=== PATIENT | female | born 1935 | race Two or more races ===

== ENCOUNTER → 2023-01-19 | Outpatient (CLI) | payer MEDICARE, BC | END | disposition home or self-care (01) | LOC: XYW 14:52 | PROVIDERS: ATTEND Internal Medicine | DX: I08.0 Rheumatic disorders of both mitral and aortic valves (principal); I10 Essential (primary) hypertension; R42 Dizziness and giddiness | CPT/HCPCS: 93306 ==

== ENCOUNTER 2023-01-28 13:29 | Inpatient (IN) | payer MEDICARE, BC ==
[~2023-01-28] VITALS: Ht 149.9 cm; Wt 53.9 kg
[2023-01-28 14:29] LABS: Basophils # (auto) 0.1 10 ^3/uL (0-0.2); Basophils % (auto) 0.9 % (0.0-2.0); Eosinophils # (auto) 0.1 10 ^3/uL (0-0.8); Eosinophils % (auto) 1.2 % (0.0-7.0); Hematocrit 34.1 % (36.0-46.0); Hemoglobin 11.6 g/dL (12.2-16.2); Lymphocytes % (auto) 27.7 % (10.0-50.0); Mean Corpuscular Hemoglobin 32.2 pg (28.0-32.0); Mean Corpuscular Hgb Conc. 34.1 g/dL (32.0-36.0); Mean Corpuscular Volume 94.3 fL (80.0-100.0); Monocytes # (auto) 0.4 10 ^3/uL (0-1.3); Monocytes % (auto) 5.4 % (0.0-12.0); Neutrophils # (auto) 4.8 10 ^3/uL (1.6-8.6); Neutrophils % (auto) 64.8 % (37.0-80.0); Red Blood Cells 3.62 10^6/uL (4.0-5.20); Red Cell Distribution Width 13.1 % (11.8-14.3); White Blood Cell 7.4 10^3/uL (4.4-10.8)
[2023-01-28 14:45] LABS: Albumin 3.8 g/dL (3.4-5.0); Calcium 9.5 mg/dL (8.5-10.1); Magnesium 2.3 mg/dL (1.6-2.6); Potassium 4.4 mmol/L (3.5-5.1)
[2023-01-28] MEDS ORDERED: ASPirin 81 mg TAB PO ONE (14:45)
[2023-01-28 14:46] LABS: INR 0.97 (0.9-1.15); Partial Thromboplastin Time 25.1 sec (24.6-33.4)
[2023-01-28 14:50] LABS: Bilirubin, Total 0.4 mg/dL (0.2-1.0); Total Protein 7.3 g/dL (6.4-8.2)
[2023-01-28] MEDS ORDERED: OXYB5TAB61 PO (17:15)
[2023-01-28] MEDS ORDERED: MORPHINE SULFATE INJ 2 MG/ml SYRG IV PRN (17:15)
[2023-01-28] MEDS ORDERED: LEV88T PO (17:15)
[2023-01-28] MEDS ORDERED: PANT40T PO (17:15)
[2023-01-28] MEDS ORDERED: NITROGLYCERIN 0.4 MG SL TAB SL PRN (17:15)
[2023-01-28] MEDS ORDERED: GABA400C11 PO (17:15)
[2023-01-28] MEDS ORDERED: SERT50TA19 PO (17:15)
[2023-01-28] MEDS ORDERED: ENOXAPARIN SOD 60 MG/0.6 ML SYRINGE SC ONE (17:30)
[2023-01-28 17:38] LABS: Cholesterol 232 mg/dL (< 200); Triglycerides 241 mg/dL (< 150)
[2023-01-28 17:40] LABS: HDL Cholesterol 81 mg/dL (40-59); LDL Cholesterol 127 mg/dL (< 100)
[2023-01-28] MEDS: SODIUM CHLORIDE 0.9% 1,000 ML IV SCH (18:54)
[2023-01-28 19:08] LABS: Urine Bacteria NONE SEEN /hpf (None Seen); Urine Blood Negative /uL (Negative); Urine Hyaline Cast FEW /lpf (0 - 2); Urine Specific Gravity 1.012 (1.001-1.035); Urine WBC 6 /hpf (0 - 5)
[2023-01-28] MEDS: ENOXAPARIN SOD 60 MG/0.6 ML SYRINGE SC SCH (23:04)
[2023-01-28] MEDS: ACETAMINOPHEN 325 MG TAB PO PRN (23:06)
[2023-01-28 23:20] VITALS: BP 138/75
[2023-01-28 23:36] VITALS: BP 138/75
[2023-01-29 05:00] VITALS: BP 135/61
[2023-01-29 05:55] LABS: Basophils # (auto) 0 10 ^3/uL (0-0.2); Basophils % (auto) 0.5 % (0.0-2.0); Eosinophils # (auto) 0.2 10 ^3/uL (0-0.8); Eosinophils % (auto) 3.3 % (0.0-7.0); Hematocrit 30.1 % (36.0-46.0); Hemoglobin 10.4 g/dL (12.2-16.2); Lymphocytes # (auto) 2.1 10 ^3/uL (0.4-5.4); Lymphocytes % (auto) 40.4 % (10.0-50.0); Mean Corpuscular Hemoglobin 32.3 pg (28.0-32.0); Mean Corpuscular Hgb Conc. 34.7 g/dL (32.0-36.0); Mean Corpuscular Volume 93.1 fL (80.0-100.0); Monocytes # (auto) 0.4 10 ^3/uL (0-1.3); Monocytes % (auto) 8.5 % (0.0-12.0); Neutrophils # (auto) 2.4 10 ^3/uL (1.6-8.6); Neutrophils % (auto) 47.3 % (37.0-80.0); Red Blood Cells 3.23 10^6/uL (4.0-5.20); Red Cell Distribution Width 13.2 % (11.8-14.3); White Blood Cell 5.2 10^3/uL (4.4-10.8)
[2023-01-29 06:11] LABS: Calcium 8.7 mg/dL (8.5-10.1)
[2023-01-29 06:17] LABS: BUN/Creatinine Ratio 19.5 (10.0-20.0); Bilirubin, Total 0.5 mg/dL (0.2-1.0); Total Protein 6.3 g/dL (6.4-8.2)
[2023-01-29] MEDS: SODIUM CHLORIDE 0.9% 1,000 ML IV SCH (08:55)
[2023-01-29] MEDS: PANTOPRAZOLE 40 MG TAB PO SCH (08:56)
[2023-01-29] MEDS: GABAPENTIN 400 MG CAP PO SCH (08:59)
[2023-01-29] MEDS: ENOXAPARIN SOD 60 MG/0.6 ML SYRINGE SC SCH (08:59)
[2023-01-29] MEDS: ASPirin 81 mg TAB PO SCH (08:59)
[2023-01-29 09:00] VITALS: BP 146/77
[2023-01-29] MEDS: SERTRALINE HCL 50 MG TAB PO SCH (09:00)
[2023-01-29] MEDS: LEVOTHYROXINE SODIUM 88 MCG TAB PO SCH (09:00)
[2023-01-29] MEDS: OXYBUTYNIN CHL 5 MG TAB PO SCH (09:01)
[2023-01-29] MEDS ORDERED: CAR3125T PO (09:14)
[2023-01-29] MEDS ORDERED: LOSA-39 PO (09:14)
[2023-01-29] MEDS ORDERED: KETOROLAC TROMETH 30 MG/ML 1ML VIAL IV ONE (11:30)
[2023-01-29 13:00] VITALS: BP 123/54
[2023-01-29 16:58] VITALS: BP 143/69
[2023-01-29 20:00] VITALS: BP 140/64
[2023-01-29 22:00] VITALS: BP 140/64
[2023-01-30] MEDS: ACETAMINOPHEN 325 MG TAB PO PRN ×3 (04:51→20:51)
[2023-01-30 05:34] VITALS: BP 134/60
[2023-01-30] MEDS: LEVOTHYROXINE SODIUM 88 MCG TAB PO SCH (07:29)
[2023-01-30] MEDS: PANTOPRAZOLE 40 MG TAB PO SCH (07:29)
[2023-01-30] MEDS: OXYBUTYNIN CHL 5 MG TAB PO SCH (07:30)
[2023-01-30] MEDS: SERTRALINE HCL 50 MG TAB PO SCH (07:30)
[2023-01-30] MEDS: ASPirin 81 mg TAB PO SCH (07:30)
[2023-01-30] MEDS: GABAPENTIN 400 MG CAP PO SCH (07:30)
[2023-01-30 08:30] VITALS: BP 132/67
[2023-01-30 08:50] VITALS: BP 132/67
[2023-01-30] MEDS ORDERED: LIDOCAINE 5% TOPICAL PATCH TOP ONE (12:30)
[2023-01-30] MEDS ORDERED: FUROSEMIDE 20 MG/2 ML VIAL IV ONE (13:00)
[2023-01-30 13:22] VITALS: BP 132/70
[2023-01-30] MEDS ORDERED: diphenhdrAMINE HCL 50 MG/1 ML VL IV ONE (13:45)
[2023-01-30] MEDS ORDERED: FAMOTIDINE INJECTION 40 MG in SODIUM CHL 0.9% 100 ML IV ONE (13:45)
[2023-01-30] MEDS ORDERED: methylPREDNISolone SOD SUCC 125 MG/2 ML VL IV ONE (13:45)
[2023-01-30] MEDS ORDERED: IODIXANOL 320MG/ML 100ML BTL IV ONE (14:23)
[2023-01-30] MEDS ORDERED: LIDOCAINE 2%HCL (LOCAL ANESTH.) INJ 10ml MDV ONE (14:23)
[2023-01-30 14:44] LABS: Partial Thromboplastin Time 30.1 sec (24.6-33.4)
[2023-01-30 15:46] LABS: Urine WBC None Seen /hpf (0 - 5)
[2023-01-30 16:02] LABS: Urine Bacteria NONE SEEN /hpf (None Seen); Urine Blood Negative /uL (Negative); Urine Specific Gravity 1.005 (1.001-1.035)
[2023-01-30 17:15] VITALS: BP 147/78
[2023-01-30] MEDS ORDERED: VERAPAMIL 2.5MG/ML INJ 2ML VIAL IV ONE (17:47)
[2023-01-30] MEDS ORDERED: MIDAZOLAM HCL 2MG/2ML 2ml VIAL (1mg/ml) ONE (17:48)
[2023-01-30] MEDS ORDERED: fentaNYL CITRATE 100 MCG/2 ML VL ONE (17:48)
[2023-01-30] MEDS ORDERED: MORPHINE SULFATE INJ 2 MG/ml SYRG ONE (18:24)
[2023-01-30] MEDS ORDERED: HEPARIN SODIUM (PORCINE) 5000 UNITS/ML 1ML VIAL ONE (18:38)
[2023-01-30] MEDS: ATORVASTATIN 20 MG TAB PO SCH ×2 (20:51→21:09)
[2023-01-30 22:00] VITALS: BP 130/68
[2023-01-31 05:00] VITALS: BP 97/53
[2023-01-31 06:38] LABS: Calcium 8.6 mg/dL (8.5-10.1); Magnesium 1.9 mg/dL (1.6-2.6); Potassium 3.8 mmol/L (3.5-5.1)
[2023-01-31 09:00] VITALS: BP 107/62
[2023-01-31] MEDS ORDERED: LIDOCAINE 5% TOPICAL PATCH TOP SCH (10:00)
[2023-01-31] MEDS: OXYBUTYNIN CHL 5 MG TAB PO SCH (10:00)
[2023-01-31] MEDS: GABAPENTIN 400 MG CAP PO SCH (10:00)
[2023-01-31] MEDS ORDERED: FUROSEMIDE 20 MG/2 ML VIAL IV SCH (10:00)
[2023-01-31] MEDS: ASPirin 81 mg TAB PO SCH (10:00)
[2023-01-31] MEDS: LEVOTHYROXINE SODIUM 88 MCG TAB PO SCH (10:01)
[2023-01-31] MEDS: SERTRALINE HCL 50 MG TAB PO SCH (10:01)
[2023-01-31] MEDS: PANTOPRAZOLE 40 MG TAB PO SCH (10:01)
[2023-01-31] MEDS ORDERED: ONDANSETRON HCL 4 MG/2 ML VIAL IV PRN (11:45)
[2023-01-31 13:00] VITALS: BP 98/55
[2023-01-31] MEDS ORDERED: ATOR20TA50 PO (14:22)
[2023-01-31 15:20] VITALS: BP 107/62
== END 2023-01-31 17:15 | disposition home or self-care (01) | DRG 286 ==
LOC: ER 13:29 → TELE 17:14 → TELE-CENTR 21:52
PROVIDERS: ADMIT Nurse Practitioner Family; ATTEND Internal Medicine
PROC: 4A023N7 Measurement of Cardiac Sampling and Pressure, Left Heart, Percutaneous Approach (ICD-10-PCS; principal; 2023-01-31)
PROC: B2111ZZ Fluoroscopy of Multiple Coronary Arteries using Low Osmolar Contrast (ICD-10-PCS; 2023-01-31)
PROC: B2151ZZ Fluoroscopy of Left Heart using Low Osmolar Contrast (ICD-10-PCS; 2023-01-31)
DX: I11.0 Hypertensive heart disease with heart failure (principal); I50.23 Acute on chronic systolic (congestive) heart failure; I24.9 Acute ischemic heart disease, unspecified; E87.1 Hypo-osmolality and hyponatremia; I42.8 Other cardiomyopathies; R54 Age-related physical debility; E03.9 Hypothyroidism, unspecified; Z20.822 Contact with and (suspected) exposure to COVID-19; M13.88 Other specified arthritis, other site; M81.0 Age-related osteoporosis without current pathological fracture; Z91.041 Radiographic dye allergy status; Z82.49 Family history of ischemic heart disease and other diseases of the circulatory system; Z88.5 Allergy status to narcotic agent; Z79.899 Other long term (current) drug therapy
CPT/HCPCS: 36415; 71045; 78582; 80048; 80053; 80061; 81001; 83036; 83605; 83735; 83880; 84443; 84484; 85025; 85379; 85610; 85730; 87040; 87426; 93005; 93458; 96360; 96372; 99152; C1894; G0378; J1885; J2001; J2250; J2405; J3490; Q9967

== ENCOUNTER → 2024-01-11 | Outpatient (CLI) | payer MEDICARE, BC ==
[~2024-01-11] MED LIST: ATOR20TA50 PO; CAR3125T PO; GABA-1251 PO; LEVO-177 PO; LOSA100T58 PO; OXYB5TAB10 PO; PANT40T PO; SERT-206 PO
== END | disposition home or self-care (01) ==
LOC: XYW 10:56
PROVIDERS: ATTEND Internal Medicine
DX: I51.7 Cardiomegaly (principal); R07.9 Chest pain, unspecified
CPT/HCPCS: 93306

== ENCOUNTER → 2024-02-10 | Outpatient (CLI) | payer MEDICARE, BC ==
[~2024-02-10] MED LIST changes: +LOSA-535 PO; -LOSA100T58 PO; -OXYB5TAB10 PO; +OXYB5TAB14 PO
[2024-02-10 14:59] LABS: Urine Bacteria None Seen /hpf (None Seen)
[2024-02-10 15:14] LABS: Urine Blood Negative /uL (Negative); Urine Clarity Clear (Clear); Urine Color Yellow (Yellow); Urine Protein, UAD Negative (Negative); Urine Specific Gravity 1.014 (1.001-1.035); Urine Urobilinogen Normal (Negative); Urine WBC 6 /hpf (0 - 5); Urine pH 5.5 (5.0-9.0)
== END | disposition home or self-care (01) ==
LOC: LAB 14:56
PROVIDERS: ATTEND Urology
DX: R35.1 Nocturia (principal); R39.81 Functional urinary incontinence
CPT/HCPCS: 81001; 87086

== ENCOUNTER 2024-06-09 07:02 | Inpatient (IN) | payer MEDICARE, BC ==
[~2024-06-09] VITALS: Ht 149.9 cm; Wt 54.0 kg
[2024-06-09 07:45] VITALS: PULSE 73; RESP 15; O2SAT 97
[2024-06-09] MEDS: ASPirin 325 MG TAB PO ONE (08:20)
[2024-06-09] MEDS: cloNIDine HCL 0.1 MG TAB PO ONE (08:20)
[2024-06-09 08:23] LABS: Basophils # (auto) 0 10 ^3/uL (0-0.2); Basophils % (auto) 0.6 % (0.0-2.0); Eosinophils # (auto) 0.1 10 ^3/uL (0-0.8); Eosinophils % (auto) 1.7 % (0.0-7.0); Hematocrit 32.2 % (36.0-46.0); Hemoglobin 10.7 g/dL (12.2-16.2); Lymphocytes # (auto) 1.8 10 ^3/uL (0.4-5.4); Lymphocytes % (auto) 36.9 % (10.0-50.0); Mean Corpuscular Hemoglobin 31.9 pg (28.0-32.0); Mean Corpuscular Hgb Conc. 33.3 g/dL (32.0-36.0); Mean Corpuscular Volume 95.7 fL (80.0-100.0); Monocytes # (auto) 0.4 10 ^3/uL (0-1.3); Monocytes % (auto) 8.6 % (0.0-12.0); Neutrophils # (auto) 2.6 10 ^3/uL (1.6-8.6); Neutrophils % (auto) 52.2 % (37.0-80.0); Nucleated Red Blood Cells % 0.1 %; Red Blood Cells 3.36 10^6/uL (4.0-5.20); Red Cell Distribution Width 14.3 % (11.8-14.3)
[2024-06-09 08:29] LABS: Chloride 104 mmol/L (98-107); Potassium 3.8 mmol/L (3.5-5.1); Sodium 135 mmol/L (136-145)
[2024-06-09 08:30] LABS: Anion Gap 2 (5-15); Calcium 9.5 mg/dL (8.7-10.4); Carbon Dioxide 29 mmol/L (20-30)
[2024-06-09 08:35] LABS: BUN/Creatinine Ratio 14.9 (10.0-20.0); Blood Urea Nitrogen 11 mg/dL (9-23); Glucose 89 mg/dL (74-106)
[2024-06-09 09:01] LABS: Urine Bacteria None Seen /hpf (None Seen)
[2024-06-09 09:15] LABS: Urine Blood Negative /uL (Negative); Urine Clarity Clear (Clear); Urine Protein, UAD Negative (Negative); Urine Specific Gravity 1.009 (1.001-1.035); Urine Urobilinogen Normal (Negative); Urine WBC 1 /hpf (0 - 5); Urine pH 7.5 (5.0-9.0)
[2024-06-09 09:18] LABS: Urine Color STRAW (Yellow)
[2024-06-09] MEDS: CARVEDILOL 3.125 MG TAB PO SCH (10:00)
[2024-06-09] MEDS: ASPirin 81 mg TAB PO SCH (10:00)
[2024-06-09] MEDS: SODIUM CHLORIDE 0.9% 1,000 ML IV SCH (10:00)
[2024-06-09] MEDS: PANTOPRAZOLE 40 MG TAB PO SCH (10:43)
[2024-06-09] MEDS: LEVOTHYROXINE SODIUM 88 MCG TAB PO SCH (10:43)
[2024-06-09] MEDS: OXYBUTYNIN CHL 5 MG TAB PO SCH (10:43)
[2024-06-09] MEDS: SERTRALINE HCL 50 MG TAB PO SCH (10:44)
[2024-06-09] MEDS ORDERED: NITROGLYCERIN 0.4 MG SL TAB SL PRN (11:45)
[2024-06-09] MEDS: ACETAMINOPHEN 325 MG TAB PO PRN (14:55)
[2024-06-09 17:13] VITALS: PULSE 56; RESP 16; O2SAT 96
[2024-06-09 17:14] VITALS: BP 146/61; PULSE 56; RESP 16; TEMP 97.6; O2SAT 96
[2024-06-09] MEDS ORDERED: IBUPROFEN 100MG/5ML ORAL SUSP 100 MG/5 ML UD GT PRN (17:30)
[2024-06-09] MEDS ORDERED: GAB100C PO (17:47)
[2024-06-09] MEDS ORDERED: LOSA-534 PO (17:48)
[2024-06-09] MEDS: KETOROLAC TROMETH 30 MG/ML 1ML VIAL IV ONE (18:02)
[2024-06-09 20:00] VITALS: RESP 17; O2SAT 92
[2024-06-09 21:00] VITALS: BP 123/48; PULSE 59; RESP 17; TEMP 97.8; O2SAT 93
[2024-06-09] MEDS: ATORVASTATIN 20 MG TAB PO SCH (21:28)
[2024-06-10 05:00] VITALS: BP 154/71; PULSE 69; RESP 16; TEMP 97.8; O2SAT 98
[2024-06-10 06:24] LABS: Triglycerides 77 mg/dL (< 150)
[2024-06-10 06:25] LABS: LDL Cholesterol 48 mg/dL (< 100)
[2024-06-10 06:26] LABS: Cholesterol 131 mg/dL (< 200); HDL Cholesterol 68 mg/dL (40-59)
[2024-06-10 08:00] VITALS: BP 159/70; PULSE 64; RESP 16; TEMP 98.2; O2SAT 92; O2SAT 97
[2024-06-10 08:07] LABS: RPR Non Reactive (Non Reactive)
[2024-06-10] MEDS: GABAPENTIN 400 MG CAP PO SCH (10:42)
[2024-06-10] MEDS: LOSARTAN POTASSIUM 50 MG TAB PO SCH (10:44)
[2024-06-10 12:00] VITALS: BP 130/58; PULSE 61; RESP 16; TEMP 97.8; O2SAT 98
[2024-06-10 16:00] VITALS: BP 115/56; PULSE 62; RESP 18; TEMP 97.4; O2SAT 93
[2024-06-10 20:00] VITALS: RESP 16; O2SAT 92
[2024-06-10 21:00] VITALS: BP 120/59; PULSE 87; RESP 18; TEMP 97.8; O2SAT 95
[2024-06-11] VITALS (7 sets, daily range): BP systolic 126–144; BP diastolic 56–66; PULSE 58–67; RESP 16–20; TEMP 97.6–98; O2SAT 97–99
[2024-06-11 07:31] LABS: Basophils # (auto) 0 10 ^3/uL (0-0.2); Basophils % (auto) 0.5 % (0.0-2.0); Eosinophils # (auto) 0.1 10 ^3/uL (0-0.8); Eosinophils % (auto) 2.6 % (0.0-7.0); Hematocrit 30.8 % (36.0-46.0); Hemoglobin 10.1 g/dL (12.2-16.2); Lymphocytes # (auto) 1.8 10 ^3/uL (0.4-5.4); Lymphocytes % (auto) 37.9 % (10.0-50.0); Mean Corpuscular Hemoglobin 32.2 pg (28.0-32.0); Mean Corpuscular Hgb Conc. 32.7 g/dL (32.0-36.0); Mean Corpuscular Volume 98.4 fL (80.0-100.0); Monocytes # (auto) 0.4 10 ^3/uL (0-1.3); Monocytes % (auto) 8.1 % (0.0-12.0); Neutrophils # (auto) 2.4 10 ^3/uL (1.6-8.6); Neutrophils % (auto) 50.9 % (37.0-80.0); Nucleated Red Blood Cells % 0.1 %; Red Blood Cells 3.13 10^6/uL (4.0-5.20); Red Cell Distribution Width 14.4 % (11.8-14.3); White Blood Cell 4.7 10^3/uL (4.4-10.8)
[2024-06-11 08:16] LABS: Alanine Aminotransferase 13 U/L (7-40); Albumin 3.2 g/dL (3.2-4.8); Alkaline Phosphatase 48 U/L (46-116); Anion Gap 1 (5-15); Aspartate Aminotransferase 19 U/L (13-40); BUN/Creatinine Ratio 13.5 (10.0-20.0); Blood Urea Nitrogen 10 mg/dL (9-23); Calcium 8.7 mg/dL (8.7-10.4); Carbon Dioxide 27 mmol/L (20-30); Chloride 105 mmol/L (98-107); Glucose 85 mg/dL (74-106); Potassium 3.8 mmol/L (3.5-5.1); Sodium 133 mmol/L (136-145)
[2024-06-11 08:17] LABS: Bilirubin, Total 0.7 mg/dL (0.2-1.0); Total Protein 5.5 g/dL (5.7-8.2)
[2024-06-11] MEDS ORDERED: CLOP75TA28 PO (16:09)
[2024-06-11] MEDS: CLOPIDOGREL BISULFATE 75 MG TAB PO ONE (17:58)
== END 2024-06-11 18:00 | disposition home or self-care (01) | DRG 69 ==
LOC: ER 07:08 → OVERFLOW 11:37 → EAST 17:05
PROVIDERS: ADMIT Nurse Practitioner Family; ATTEND Nurse Practitioner Family
DX: G45.9 Transient cerebral ischemic attack, unspecified (principal); E44.1 Mild protein-calorie malnutrition; E87.1 Hypo-osmolality and hyponatremia; I50.32 Chronic diastolic (congestive) heart failure; I16.1 Hypertensive emergency; E03.9 Hypothyroidism, unspecified; E78.5 Hyperlipidemia, unspecified; I11.0 Hypertensive heart disease with heart failure; G62.9 Polyneuropathy, unspecified; F32.9 Major depressive disorder, single episode, unspecified; D64.9 Anemia, unspecified; M54.12 Radiculopathy, cervical region; N39.46 Mixed incontinence; Z91.041 Radiographic dye allergy status; Z88.5 Allergy status to narcotic agent; Z68.22 Body mass index [BMI] 22.0-22.9, adult
CPT/HCPCS: 36415; 70450; 70551; 71045; 80048; 80053; 80061; 81001; 82962; 84100; 84439; 84443; 84484; 85025; 86592; 93886; 96374; 97110; 97116; 97163; 97530; G0378; J1885

== ENCOUNTER → 2024-08-03 | Day surgery (SDC) | payer MEDICARE, BC ==
[2024-07-31 14:39] LABS: Urine Bacteria None Seen /hpf (None Seen)
[2024-07-31 14:43] LABS: Basophils # (auto) 0 10 ^3/uL (0-0.2); Basophils % (auto) 0.4 % (0.0-2.0); Eosinophils # (auto) 0.1 10 ^3/uL (0-0.8); Hemoglobin 10.7 g/dL (12.2-16.2); Lymphocytes # (auto) 1.5 10 ^3/uL (0.4-5.4); Lymphocytes % (auto) 25.4 % (10.0-50.0); Mean Corpuscular Hemoglobin 32.2 pg (28.0-32.0); Mean Corpuscular Hgb Conc. 33.5 g/dL (32.0-36.0); Mean Corpuscular Volume 96.3 fL (80.0-100.0); Monocytes # (auto) 0.5 10 ^3/uL (0-1.3); Monocytes % (auto) 8.3 % (0.0-12.0); Neutrophils # (auto) 3.8 10 ^3/uL (1.6-8.6); Neutrophils % (auto) 64.9 % (37.0-80.0); Platelet Count (auto) 269 10^3/uL (140-450); Red Blood Cells 3.32 10^6/uL (4.0-5.20); Red Cell Distribution Width 13.4 % (11.8-14.3); White Blood Cell 5.9 10^3/uL (4.4-10.8)
[2024-07-31 15:09] LABS: INR 1.05 (0.9-1.15); Partial Thromboplastin Time 26.6 SEC (24.5-34.5); Prothrombin Time 11.1 sec (9.3-11.8)
[2024-07-31 15:28] LABS: Urine Blood Negative /uL (Negative); Urine Clarity Clear (Clear); Urine Color Yellow (Yellow); Urine Hyaline Cast FEW /lpf (0 - 2); Urine Mucus FEW (None Seen); Urine Protein, UAD TRACE (Negative); Urine Specific Gravity 1.017 (1.001-1.035); Urine Urobilinogen Normal (Negative); Urine WBC 2 /hpf (0 - 5); Urine pH 5.5 (5.0-9.0)
[2024-07-31 15:47] LABS: Alanine Aminotransferase 12 U/L (7-40); Alkaline Phosphatase 59 U/L (46-116); Anion Gap 6 (5-15); BUN/Creatinine Ratio 19.4 (10.0-20.0); Blood Urea Nitrogen 18 mg/dL (9-23); Carbon Dioxide 26 mmol/L (20-31); Chloride 104 mmol/L (98-107); Glucose 88 mg/dL (74-106); Sodium 136 mmol/L (136-145)
[2024-07-31 15:48] LABS: Albumin 4.1 g/dL (3.2-4.8); Aspartate Aminotransferase 16 U/L (13-40); Bilirubin, Total 0.7 mg/dL (0.2-1.0); Total Protein 6.8 g/dL (5.7-8.2)
[~2024-08-03] VITALS: Ht 149.9 cm; Wt 52.2 kg
[~2024-08-03] MED LIST changes: +ACETAMINOPHEN IV 100 ML IV ONE; +DexAMETHasone SOD PHOS 10MG/1ML VIAL INJ ONE; +GAB100C PO; +LOSA-534 PO; +ONDANSETRON HCL 4 MG/2 ML VIAL ONE; +PROPOFOL 10 MG/ML 20 ML IV ONE; +fentaNYL CITRATE 100 MCG/2 ML VL ONE; +levoFLOXacin 500MG 100 ML IV ONE
[2024-08-03 14:33] VITALS: PULSE 71; RESP 11; TEMP 98.6; O2SAT 95
[2024-08-03] MEDS: ACETAMINOPHEN IV 1000 MG/100ML (10MG/ML) IV ONE (15:49)
[2024-08-03 16:05] VITALS: BP 150/69; PULSE 72; RESP 14; O2SAT 95
== END | disposition home or self-care (01) ==
LOC: SUR 08:57
PROVIDERS: ATTEND Urology
DX: N39.3 Stress incontinence (female) (male) (principal); N36.42 Intrinsic sphincter deficiency (ISD); I11.0 Hypertensive heart disease with heart failure; I50.9 Heart failure, unspecified; E03.9 Hypothyroidism, unspecified; E78.5 Hyperlipidemia, unspecified; G89.29 Other chronic pain; M81.0 Age-related osteoporosis without current pathological fracture; F41.9 Anxiety disorder, unspecified; F32.A Depression, unspecified; M06.9 Rheumatoid arthritis, unspecified; M17.0 Bilateral primary osteoarthritis of knee; Z98.41 Cataract extraction status, right eye; Z86.73 Personal history of transient ischemic attack (TIA), and cerebral infarction without residual deficits; Z98.42 Cataract extraction status, left eye; Z88.6 Allergy status to analgesic agent; Z91.041 Radiographic dye allergy status; Z79.899 Other long term (current) drug therapy; Z79.890 Hormone replacement therapy; Z98.890 Other specified postprocedural states; Z98.51 Tubal ligation status
CPT/HCPCS: 36415; 51715; 74018; 80053; 81001; 85025; 85610; 85730; 87086; J1100; J1956; J2405; J2704; J3010; L8606; 76000; J0131

== ENCOUNTER → 2024-12-20 | Outpatient (CLI) | payer MEDICARE, BC ==
[~2024-12-20] MED LIST changes: -ACETAMINOPHEN IV 100 ML IV ONE; -DexAMETHasone SOD PHOS 10MG/1ML VIAL INJ ONE; -ONDANSETRON HCL 4 MG/2 ML VIAL ONE; -PROPOFOL 10 MG/ML 20 ML IV ONE; -fentaNYL CITRATE 100 MCG/2 ML VL ONE; -levoFLOXacin 500MG 100 ML IV ONE
[2024-12-20 12:06] LABS: Basophils # (auto) 0 10 ^3/uL (0-0.2); Basophils % (auto) 0.3 % (0.0-2.0); Eosinophils # (auto) 0.1 10 ^3/uL (0-0.8); Eosinophils % (auto) 0.8 % (0.0-7.0); Hematocrit 32.7 % (36.0-46.0); Lymphocytes # (auto) 1.8 10 ^3/uL (0.4-5.4); Lymphocytes % (auto) 21.8 % (10.0-50.0); Mean Corpuscular Hgb Conc. 33.7 g/dL (32.0-36.0); Mean Corpuscular Volume 97.7 fL (80.0-100.0); Monocytes # (auto) 0.7 10 ^3/uL (0-1.3); Monocytes % (auto) 8.3 % (0.0-12.0); Neutrophils # (auto) 5.7 10 ^3/uL (1.6-8.6); Neutrophils % (auto) 68.8 % (37.0-80.0); Nucleated Red Blood Cells % 0.2 %; Platelet Count (auto) 264 10^3/uL (140-450); Red Blood Cells 3.34 10^6/uL (4.0-5.20); Red Cell Distribution Width 14.1 % (11.8-14.3); White Blood Cell 8.3 10^3/uL (4.4-10.8)
[2024-12-20 12:50] LABS: Anion Gap 7 (5-15); Carbon Dioxide 26 mmol/L (20-31); Potassium 3.9 mmol/L (3.5-5.1)
[2024-12-20 12:51] LABS: Calcium 9.9 mg/dL (8.7-10.4); Chloride 97 mmol/L (98-107); Sodium 130 mmol/L (136-145)
[2024-12-20 12:56] LABS: BUN/Creatinine Ratio 15.7 (10.0-20.0); Blood Urea Nitrogen 13 mg/dL (9-23); Glucose 90 mg/dL (74-106)
[2024-12-20 13:13] LABS: INR 0.98 (0.9-1.15); Prothrombin Time 10.4 sec (9.3-11.8)
== END | disposition home or self-care (01) ==
LOC: LAB 11:24
PROVIDERS: ATTEND Urology
DX: Z01.812 Encounter for preprocedural laboratory examination (principal); R33.9 Retention of urine, unspecified; E03.9 Hypothyroidism, unspecified; G45.9 Transient cerebral ischemic attack, unspecified
CPT/HCPCS: 36415; 80048; 85025; 85610; 85730

== ENCOUNTER → 2024-12-22 | Outpatient (CLI) | payer MEDICARE, OTHER ==
[~2024-12-22] MED LIST changes: +LIDOCAINE 2%HCL (LOCAL ANESTH.) INJ 10ml MDV ONE; +MIDAZOLAM HCL 2MG/2ML 2ml VIAL (1mg/ml) IV ONE; +fentaNYL CITRATE 100 MCG/2 ML VL IV ONE
--- NOTE | 2024-12-22 13:50 | DVH ---
US US GUIDANCE FOR NEEDLE PLACEME, HISTORY: RENAL CYST DRAINAGE PROCEDURE: An informed consent was obtained. The patient was placed prone on the interventional table . IV sedation was administered. The suspicious fluid collection was localized with CT and ultrasound and the overlying skin prepped with chlorhexidine which was allowed to dry and draped in the usual st erile fashion. Time out was performed and infiltrated with 1% Xylocaine. With US guidance, 19-gauge c entesis needle catheter was advanced into the fluid collection. Approximately 30 cc of clear serous was aspirated. The catheter was then removed. No immediate complication was identified. Post procedu re catherogram was obtained. DLP 355 SEDATION: Dr. Carolina Ash was personally responsible for the administration of moderate sedation during the procedure performed, including the use of an independent trained observer who had no other duties during the procedure. The drugs utilized were IV fentanyl and versed (see nursing log for details). The total time of supervision by the attending physician was approximately 30 minutes. FINDINGS: Limited US scan of through the abdomen demonstrates a right lower pole cyst. Collection coty ears simple. Post procedure scan shows it decreased in size. IMPRESSION: US and CT guided right kidney cyst aspiration with 30 mL fluid removed.
== END | disposition home or self-care (01) ==
LOC: XYW 09:07
PROVIDERS: ATTEND Urology
DX: N28.1 Cyst of kidney, acquired (principal)
CPT/HCPCS: 50390; 74170; 76942; 77012; 87205; 88104; 88305; J2003; 10005

== ENCOUNTER → 2025-01-08 | Outpatient (CLI) | payer MEDICARE, OTHER ==
[~2025-01-08] MED LIST changes: -LIDOCAINE 2%HCL (LOCAL ANESTH.) INJ 10ml MDV ONE; -MIDAZOLAM HCL 2MG/2ML 2ml VIAL (1mg/ml) IV ONE; -fentaNYL CITRATE 100 MCG/2 ML VL IV ONE
[2025-01-08 15:44] LABS: Basophils # (auto) 0 10 ^3/uL (0-0.2); Basophils % (auto) 0.5 % (0.0-2.0); Eosinophils # (auto) 0.1 10 ^3/uL (0-0.8); Eosinophils % (auto) 1.3 % (0.0-7.0); Hematocrit 29.3 % (36.0-46.0); Hemoglobin 10.1 g/dL (12.2-16.2); Lymphocytes # (auto) 1.6 10 ^3/uL (0.4-5.4); Mean Corpuscular Hemoglobin 33.5 pg (28.0-32.0); Mean Corpuscular Hgb Conc. 34.6 g/dL (32.0-36.0); Monocytes # (auto) 0.5 10 ^3/uL (0-1.3); Monocytes % (auto) 8.9 % (0.0-12.0); Neutrophils # (auto) 3.8 10 ^3/uL (1.6-8.6); Neutrophils % (auto) 63.3 % (37.0-80.0); Platelet Count (auto) 295 10^3/uL (140-450); Red Blood Cells 3.02 10^6/uL (4.0-5.20); Red Cell Distribution Width 13.4 % (11.8-14.3); White Blood Cell 6.1 10^3/uL (4.4-10.8)
[2025-01-08 15:57] LABS: Urine Bacteria FEW /hpf (None Seen); Urine Blood Negative /uL (Negative); Urine Clarity Turbid (Clear); Urine Color Light-Yellow (Yellow); Urine Mucus FEW (None Seen); Urine Protein, UAD Negative (Negative); Urine Specific Gravity 1.015 (1.001-1.035); Urine Squamous Epithelial Cell FEW /hpf (<5); Urine Urobilinogen Normal (Negative); Urine WBC 123 /HPF (0-5); Urine pH 5.5 (5.0-9.0)
[2025-01-08 16:08] LABS: Alanine Aminotransferase 18 U/L (7-40); Alkaline Phosphatase 54 U/L (46-116); Calcium 9.3 mg/dL (8.7-10.4); Carbon Dioxide 26 mmol/L (20-31); Chloride 99 mmol/L (98-107); LDL Cholesterol 85 mg/dL (< 100); Potassium 3.8 mmol/L (3.5-5.1); Triglycerides 137 mg/dL (< 150)
[2025-01-08 16:09] LABS: Albumin 3.9 g/dL (3.2-4.8); Anion Gap 5 (5-15); Aspartate Aminotransferase 17 U/L (13-40); BUN/Creatinine Ratio 15.8 (10.0-20.0); Bilirubin, Total 0.4 mg/dL (0.2-1.0); Blood Urea Nitrogen 12 mg/dL (9-23); Cholesterol 173 mg/dL (< 200); Glucose 120 mg/dL (74-106); HDL Cholesterol 68 mg/dL (40-59); Sodium 130 mmol/L (136-145); Total Protein 6.3 g/dL (5.7-8.2)
[2025-01-08 16:11] LABS: Free T4 (Free Thyroxine) 1.92 ng/dL (0.89-1.76)
== END | disposition home or self-care (01) ==
LOC: LAB 15:21
PROVIDERS: ATTEND Internal Medicine
DX: I10 Essential (primary) hypertension (principal); E78.00 Pure hypercholesterolemia, unspecified; G60.9 Hereditary and idiopathic neuropathy, unspecified; Z79.899 Other long term (current) drug therapy; M81.0 Age-related osteoporosis without current pathological fracture
CPT/HCPCS: 36415; 80053; 80061; 81001; 82306; 82607; 84439; 84443; 85025

== ENCOUNTER 2025-02-14 20:31 | Emergency (ER) | payer MEDICARE, OTHER ==
[~2025-02-14] VITALS: Ht 152.4 cm; Wt 47.2 kg
--- NOTE | 2025-02-14 20:48 | ED.PDOC ---
Musculoskeletal HPI Comments 89 year old female presents to the ED via EMS with a chief complaint of LT leg pain onset 3 days. PMHx arthritis, sciatica, HTN, HLD. Patient has chronic LT leg pain, worsen past 3 days. Patient has an upcoming appointment for steroid shot. Denies fall, injury, nausea, vomiting, diarrhea, headache, dizziness. No other symptoms or modifying factors present at this time. Chief Complaint: Lower Extremity Time Seen by MD: 20:41 Primary Care Provider: DAWN Robles Notes: Medications, Allergies Allergies: Coded Allergies: Codeine (Verified Allergy, Unknown, Itchy, 07/31/24) Uncoded Allergies: CONTRAST DYE (Allergy, Unknown, Rash, 07/31/24) Home Meds Active Scripts Gabapentin (Once-Daily) (Gabapentin) 300 Mg Tab, 300 MG PO Q6HP PRN, #60 TAB Prov:LEENA OVIEDO MD 02/14/25 Atorvastatin Calcium (ATORVASTATIN CALCIUM) 20 Mg Tab, 20 MG PO HS for 30 Days, #30 TAB Prov:NIK PASCUAL MD 01/31/23 Reported Medications Losartan Potassium (Losartan Potassium) 50 Mg Tab, 1 TAB PO DAILY 06/09/24 Gabapentin (Gabapentin) 100 Mg Cap, CAP PO 06/09/24 Carvedilol (Coreg) 3.125 Mg Tab, 1 TAB PO BID, #180 TAB 1 Refill 01/29/23 Losartan Potassium (Losartan Potassium) 100 Mg Tab, 100 MG PO DAILY for 30 Days, MG 01/29/23 Gabapentin (Gabapentin) 400 Mg Cap, 1 CAP PO DAILY 01/28/23 Sertraline Hcl (Sertraline Hcl) 50 Mg Tab, 1 TAB PO DAILY 01/28/23 Pantoprazole Sodium Sesquihydr (Pantoprazole Sodium) 40 Mg Tab, 1 TAB PO DAILY 01/28/23 Levothyroxine Sodium (Levothyroxine Sodium) 88 Mcg Tab, 1 TAB PO DAILY 01/28/23 Oxybutynin Chloride (Oxybutynin Chloride) 5 Mg Tab, 1 TAB PO DAILY 01/28/23 Information Source: Patient, Emergency Med Personnel Mode of Arrival: EMS Location: Left Extremity Location: Leg Timing: Days Prehospital treatment: None Severity: Moderate Able to Move Extremity: Yes Bear Weight: Limited Pain: Moderate Mechanism: Spontaneous Circumstances: Spontaneous Onset of Symptoms: Spontaneous Symptoms: Pain DVT Risk Factors: NONE History of: Arthritis Associated signs and symptoms: Leg pain Past Medical History PAST MEDICAL HISTORY: Arthritis, High Lipids, HTN, Thyroid Past Medical History (Other): sciatica Surgical History: Denies all surgeries DRY KILN FEEDER History: Denies all DRY KILN FEEDER Hx Family History Family History: Reviewed,noncontributory to illness Social History Smoker: Non-Smoker Alcohol: Denies ETOH Use Drugs: Denies Drug Use Lives In: Home Constitutional: denies: chills, diaphoresis, fatigue, fever, malaise, sweats, weakness, others EENTM: denies: blurred vision, double vision, ear bleeding, ear discharge, ear drainage, ear pain, ear ringing, eye pain, eye redness, hearing loss, mouth pain, mouth swelling, nasal discharge, nose bleeding, nose congestion, nose pain, photophobia, tearing, throat pain, throat swelling, voice changes, others Respiratory: denies: cough, hemoptysis, orthopnea, SOB at rest, shortness of breath, SOB with excertion, stridor, wheezing, others Cardiovascular: denies: chest pain, dizzy spells, diaphoresis, Dyspnea on exertion, edema, irregular heart beat, left arm pain, lightheadedness, palpitations, PND, syncope, others Gastrointestinal: denies: abdomen distended, abdominal pain, blood streaked bowels, constipated, diarrhea, dysphagia, difficulty swallowing, hematemesis, melena, nausea, poor appetite, poor fluid intake, rectal bleeding, rectal pain, vomiting, others Genitourinary: denies: abnormal vagina bleeding, burning, dyspareunia, dysuria, flank pain, frequency, hematuria, incontinence, pain, , vagina discharge, urgency, others Neurological: denies: dizziness, fainting, headache, left sided numbness, left sided weakness, numbness, paresthesia, pre-existing deficit, right sided numbness, right sided weakness, seizure, speech problems, tingling, tremors, weakness, others Musculoskeletal: reports: others (LT leg pain); denies: back pain, gout, joint pain, joint swelling, muscle pain, muscle stiffness, neck pain Integumetry: denies: bruises, change in color, change in hair/nails, dryness, laceration, lesions, lumps, rash, wounds, others Allergic/Immunocompromised: denies: Difficulty Healing, Frequent Infections, Hives, Itching, others Hematologic/Lymphatic: denies: anemia, blood clots, easy bleeding, easy bruising, swollen glands, others Endocrine: denies: excessive hunger, excessive sweating, excessive thirst, excessive urination, flushing, intolerance to cold, intolerance to heat, unexplained weight gain, unexplained weight loss, others Psychiatric: denies: anxiety, bipolar disorder, depression, hopeless, panic disorder, schizophrenia, sleepless, suicidal, others All Other Systems: Reviewed and Negative Physical Exam General Appearance: No Apparent Distress, Normal HEENT: Normal ENT Inspection, Pharynx Normal, TMs Normal Neck: Full Range of Motion, Non-Tender, Normal, Normal Inspection Respiratory: Chest Non-Tender, Lungs Clear, No Accessory Muscle Use, No Respiratory Distress, Normal Breath Sounds Cardiovascular: No Edema, No JVD, No Murmur, No Gallop, Normal Peripheral Pulses, Regular Rate/Rhythm Breast Exam: Deferred Gastrointestinal: No Organomegaly, Non Tender, No Pulsatile Mass, Normal Bowel Sounds, Soft Genitalia: Deferred Pelvic: Deferred Rectal: Deferred Extremities: No calf tenderness, Normal capillary refill, Normal inspection, Normal range of motion, Non-tender, No pedal edema Musculoskeletal : Apperance: Normal Neurologic: Alert, rn ent II-XII nml as Tested, No Motor Deficits, Normal Affect, Normal Mood, No Sensory Deficits Cerebellar Function: Normal Reflexes: Normal Skin: Dry, Normal Color, Warm Lymphatic: No Adenopathy Was a procedure done? Was a procedure done?: No Differential Diagnosis EXT Differential Diagnosis: Cellulitis, Deep Vein Thrombosis, Compartment Syndrome, Contusion, Strain, Neurovascular injury, Other X-Ray, Labs, Meds, VS Vital Signs Date Time Temp Pulse Resp B/P (MAP) Pulse Ox O2 Delivery O2 Flow Rate FiO2 02/15/25 00:31 98.1 98 19 141/97 (112) 97 98.1 02/14/25 20:44 98.1 87 18 179/96 (123) 99 98.1 Current Medications Medications (Trade) Dose Ordered Sig/Leidy Route Start Time Stop Time Status Last Admin Ketorolac Tromethamine (Toradol Injection) 15 mg ONCE ONCE IV 02/15/25 00:15 02/15/25 00:16 DC 02/15/25 00:27 Gabapentin (Neurontin Capsule) 300 mg ONCE ONCE PO 02/15/25 00:15 02/15/25 00:16 DC 02/15/25 00:[address] [address] Ph: [phone] DIAGNOSTIC IMAGING Diagnostic Imaging Report : [id number] Signed PATIENT: DOREEN NGUYỄNACCT: [id number] UNIT: [id number] : 1935 LOC: ER ROOM / BED: / AGE / SEX: 89 / F ADM STATUS: REG ER SERVICE 43 ORDERING PHYSICIAN: LEENA OVIEDO MD PROCEDURE(s): LKNE3 - L KNEE 3V XRAY REASON: pain, no recent trauma ORDER NUMBER(s): [id number], ACCESSION NUMBER(s): [id number] EXAM: XY L KNEE 3V XRAY HISTORY: pain, no recent trauma COMPARISON: None TECHNIQUE: Bones are osteopenic patient has a pressure plate in the least 10 orthopedic screws 4 a femoral fracture which is no longer seen. Bones are osteopenic lateral joint space is narrowed 2.6 mm . 5 mm or more is normal. There are no effusions. IMPRESSION: 1. Osteopenia and probable degenerative changes involving the lateral compartment ATED BY: KOLBY HUDDLESTON MD DICTATED DATE/TIME: 02/14/252224 SIGNED BY: KOLBY HUDDLESTON MD SIGNED DATE/TIME: 02/14/252224 CC: [address] [address] Ph: [phone] DIAGNOSTIC IMAGING Diagnostic Imaging Report : [id number] Signed PATIENT: DOREEN NGUYỄNACCT: [id number] UNIT: [id number] : 1935 LOC: ER ROOM / BED: / AGE / SEX: 89 / F ADM STATUS: REG ER SERVICE 43 ORDERING PHYSICIAN: LEENA OVIEDO MD PROCEDURE(s): LFEM - L FEMUR XRAY REASON: pain no recent trauma ORDER NUMBER(s): [id number], ACCESSION NUMBER(s): [id number] EXAM: XY L FEMUR XRAY HISTORY: pain no recent trauma COMPARISON: None TECHNIQUE: AP and lateral views of the left femur were performed. FINDINGS: No evidence of fracture or other osseous abnormality about the left femur. The left hip and knee are grossly normal. IMPRESSION: 1. No acute fracture of the left femur. Patient has pressure plate and multiple orthopedic screws for prior fracture which is healed involving the left femur ATED BY: KOLBY HUDDLESTON MD DICTATED DATE/TIME: 02/14/252226 SIGNED BY: KOLBY HUDDLESTON MD SIGNED DATE/TIME: 02/14/252226 CC: Time of 1ST Reevaluation: 21:11 Reevaluation 1ST: Unchanged Patient Education/Counseling: Diagnosis, Treatment, Prognosis Family Education/Counseling: No Family Present Additional Information The following tests were ordered, and results were reviewed by me: XY L FEMUR, XY L KNEE 3V Additional Information was gathered from interviewing the following independent historians: EMS I reviewed and agreed with the following test results read by other providers: XY L FEMUR, XY L KNEE 3V I discussed treatment and results with medical personnel and: Patient Comprehensive systems review obtained and negative except for what is stated in the HPI. Departure 1 Departure Time of Disposition: 01:00 Impression: Primary Impression: Osteoarthritis of left knee Additional Impression: Left sided sciatica Disposition: HOME / SELF CARE / HOMELESS Condition: Stable e-Prescriptions Gabapentin (Once-Daily) (Gabapentin) 300 Mg Tab 300 MG PO Q6HP PRN, #60 TAB Prov: LEENA OVIEDO MD 02/14/25 Discharged With: Self Critical Care Note Critical Care Time?: No Stability Stability form required: No I personally scribed for LEENA OVIEDO MD ([email or web address]) on 02/14/25 at 20:48. Electronically submitted by Grace Sanderson ([email or web address]). I personally scribed for LEENA OVIEDO MD ([email or web address]) on 02/14/25 at 20:48. Electronically submitted by Grace Sanderson ([email or web address]). I personally scribed for LEENA OVIEDO MD ([email or web address]) on 02/14/25 at 22:47. Electronically submitted by Grace Sanderson ([email or web address]). LEENA OVIEDO MD Feb 14, 2025 20:48
--- NOTE | 2025-02-14 22:28 | DVH ---
EXAM: XY L KNEE 3V XRAY HISTORY: pain, no recent trauma COMPARISON: None TECHNIQUE: Bones are osteopenic patient has a pressure plate in the least 10 orthopedic screws 4 a femoral fract ure which is no longer seen. Bones are osteopenic lateral joint space is narrowed 2.6 mm . 5 mm or mo re is normal. There are no effusions. IMPRESSION: 1. Osteopenia and probable degenerative changes involving the lateral compartment
--- NOTE | 2025-02-14 22:29 | DVH ---
EXAM: XY L FEMUR XRAY HISTORY: pain no recent trauma COMPARISON: None TECHNIQUE: AP and lateral views of the left femur were performed. FINDINGS: No evidence of fracture or other osseous abnormality about the left femur. The left hip and knee are grossly normal. IMPRESSION: 1. No acute fracture of the left femur. Patient has pressure plate and multiple orthopedic screws for prior fracture which is healed involving the left femur
[2025-02-14] MEDS ORDERED: GABA300T4 PO (23:09)
[2025-02-15] MEDS: GABAPENTIN 300 MG CAP PO ONE (00:27)
[2025-02-15] MEDS: HYDROcodone-ACET 5/325MG TAB PO ONE (00:27)
[2025-02-15] MEDS: KETOROLAC TROMETH 30 MG/ML 1ML VIAL IV ONE (00:27)
[2025-02-15 00:31] VITALS: BP 141/97; PULSE 98; RESP 19; TEMP 98.1; O2SAT 97
== END 2025-02-15 00:41 | disposition home or self-care (01) ==
LOC: ER 20:31 → EDBD 20:31 → ER 02-15 00:41
DX: M17.12 Unilateral primary osteoarthritis, left knee (principal); M54.32 Sciatica, left side; I10 Essential (primary) hypertension; E78.5 Hyperlipidemia, unspecified; E03.9 Hypothyroidism, unspecified; Z79.899 Other long term (current) drug therapy; Z98.890 Other specified postprocedural states; Z88.5 Allergy status to narcotic agent
CPT/HCPCS: 73552; 73562; 96374; 99284; J1885

== ENCOUNTER 2025-06-18 10:44 | Outpatient (CLI) | payer MEDICARE, BC ==
[~2025-06-18 10:44] MED LIST changes: +GABA300T4 PO
[2025-06-18 11:49] LABS: Hematocrit 30.2 % (36.0-46.0); Hemoglobin 10.4 g/dL (12.2-16.2); Mean Corpuscular Hemoglobin 33.5 pg (28.0-32.0); Mean Corpuscular Volume 97.5 fL (80.0-100.0); Nucleated Red Blood Cells % 0.0 %
[2025-06-18 12:37] LABS: Iron 69.0 ug/dL (50-170)
[2025-06-18 12:40] LABS: Total Iron Binding Capacity 304.0 ug/dL (250-425)
[2025-06-18 12:41] LABS: Alanine Aminotransferase 17 U/L (7-40); Albumin 4.1 g/dL (3.2-4.8); Alkaline Phosphatase 55 U/L (46-116); Anion Gap 8 (5-15); BUN/Creatinine Ratio 24.7 (10.0-20.0); Bilirubin, Total 0.6 mg/dL (0.2-1.0); Blood Urea Nitrogen 19 mg/dL (9-23); Calcium 9.5 mg/dL (8.7-10.4); Carbon Dioxide 27 mmol/L (20-31); Glucose 85 mg/dL (74-106); Potassium 4.3 mmol/L (3.5-5.1); Total Protein 6.5 g/dL (5.7-8.2)
[2025-06-18 12:44] LABS: Chloride 95 mmol/L (98-107); Sodium 130 mmol/L (136-145)
== END 2025-06-18 17:00 | disposition home or self-care (01) ==
LOC: LAB 10:44
PROVIDERS: ATTEND Internal Medicine
DX: I11.0 Hypertensive heart disease with heart failure (principal); I50.9 Heart failure, unspecified; D64.9 Anemia, unspecified
CPT/HCPCS: 36415; 80053; 82607; 82746; 83540; 83550; 83615; 85025; 85045

== ENCOUNTER 2025-06-27 22:39 | Inpatient (IN) | payer MEDICARE, BC ==
[~2025-06-27] VITALS: Ht 149.9 cm; Wt 48.2 kg
--- NOTE | 2025-06-27 23:22 | ED.PDOC ---
GI ASSESSMENT HPI Comments 89 year old female presents to the ED via EMS with a chief complaint of abdominal pain onset today around 07:30. Patient states she woke up around 07:30, began experiencing LLQ pain as well as nausea, vomiting, has experienced about 5 episode. In route to ED, she was given Tylenol 1g by EMS, improved pain from 04/03 to 410. PMHx HTN, HLD, arthritis. Denies fever, chills, chest pain, shortness of breath, dizziness, headache, dysuria, hematuria, hematemesis. No other symptoms or modifying factors present at this time. Chief Complaint: Abdominal Pain Time Seen by MD: 23:10 Primary Care Provider: DAWN Reviewed Notes: Medications, Allergies Allergies: Coded Allergies: Codeine (Verified Allergy, Unknown, Itchy, 07/31/24) Red Dye #40 (Allura Red) (Verified Allergy, Unknown, 06/27/25) Uncoded Allergies: CONTRAST DYE (Allergy, Unknown, Rash, 07/31/24) Home Meds Active Scripts Gabapentin (Once-Daily) (Gabapentin) 300 Mg Tab, 300 MG PO Q6HP PRN, #60 TAB Prov:LEENA OVIEDO MD 02/14/25 Atorvastatin Calcium (ATORVASTATIN CALCIUM) 20 Mg Tab, 20 MG PO HS for 30 Days, #30 TAB Prov:NIK PASCUAL MD 01/31/23 Reported Medications Losartan Potassium (Losartan Potassium) 50 Mg Tab, 1 TAB PO DAILY 06/09/24 Gabapentin (Gabapentin) 100 Mg Cap, CAP PO 06/09/24 Carvedilol (Coreg) 3.125 Mg Tab, 1 TAB PO BID, #180 TAB 1 Refill 01/29/23 Losartan Potassium (Losartan Potassium) 100 Mg Tab, 100 MG PO DAILY for 30 Days, MG 01/29/23 Gabapentin (Gabapentin) 400 Mg Cap, 1 CAP PO DAILY 01/28/23 Sertraline Hcl (Sertraline Hcl) 50 Mg Tab, 1 TAB PO DAILY 01/28/23 Pantoprazole Sodium Sesquihydr (Pantoprazole Sodium) 40 Mg Tab, 1 TAB PO DAILY 01/28/23 Levothyroxine Sodium (Levothyroxine Sodium) 88 Mcg Tab, 1 TAB PO DAILY 01/28/23 Oxybutynin Chloride (Oxybutynin Chloride) 5 Mg Tab, 1 TAB PO DAILY 01/28/23 Information Source: Patient, Emergency Med Personnel Mode of Arrival: EMS Timing: Hours Duration: Since onset Prehospital treatment: Pain Meds (Tylenol 1g) Quality: Sharp Severity: Moderate Recent: None Recent Hx of: None Pain Location: LLQ Modifying Factors: Nothing Associated sign and symptoms: Nausea, Vomiting, Abdominal Pain Past Medical History PAST MEDICAL HISTORY: Arthritis, High Lipids, HTN, Thyroid Surgical History: Denies all surgeries PLASTER MIXER History: Denies all PLASTER MIXER Hx Family History Family History: Reviewed,noncontributory to illness Social History Smoker: Non-Smoker Alcohol: Denies ETOH Use Drugs: Denies Drug Use Lives In: Home Constitutional: denies: chills, diaphoresis, fatigue, fever, malaise, sweats, weakness, others EENTM: denies: blurred vision, double vision, ear bleeding, ear discharge, ear drainage, ear pain, ear ringing, eye pain, eye redness, hearing loss, mouth pain, mouth swelling, nasal discharge, nose bleeding, nose congestion, nose pain, photophobia, tearing, throat pain, throat swelling, voice changes, others Respiratory: denies: cough, hemoptysis, orthopnea, SOB at rest, shortness of breath, SOB with excertion, stridor, wheezing, others Cardiovascular: denies: chest pain, dizzy spells, diaphoresis, Dyspnea on exertion, edema, irregular heart beat, left arm pain, lightheadedness, palpitations, PND, syncope, others Gastrointestinal: reports: abdominal pain, nausea, vomiting; denies: abdomen distended, blood streaked bowels, constipated, diarrhea, dysphagia, difficulty swallowing, hematemesis, melena, poor appetite, poor fluid intake, rectal bleeding, rectal pain, others Genitourinary: denies: abnormal vagina bleeding, burning, dyspareunia, dysuria, flank pain, frequency, hematuria, incontinence, pain, , vagina discharge, urgency, others Neurological: denies: dizziness, fainting, headache, left sided numbness, left sided weakness, numbness, paresthesia, pre-existing deficit, right sided numbness, right sided weakness, seizure, speech problems, tingling, tremors, weakness, others Musculoskeletal: denies: back pain, gout, joint pain, joint swelling, muscle pain, muscle stiffness, neck pain, others Integumetry: denies: bruises, change in color, change in hair/nails, dryness, laceration, lesions, lumps, rash, wounds, others Allergic/Immunocompromised: denies: Difficulty Healing, Frequent Infections, Hives, Itching, others Hematologic/Lymphatic: denies: anemia, blood clots, easy bleeding, easy bruising, swollen glands, others Endocrine: denies: excessive hunger, excessive sweating, excessive thirst, excessive urination, flushing, intolerance to cold, intolerance to heat, unexplained weight gain, unexplained weight loss, others Psychiatric: denies: anxiety, bipolar disorder, depression, hopeless, panic disorder, schizophrenia, sleepless, suicidal, others All Other Systems: Reviewed and Negative Physical Exam General Appearance: Normal HEENT: Normal ENT Inspection, Pharynx Normal, TMs Normal Neck: Full Range of Motion, Non-Tender, Normal, Normal Inspection Respiratory: Chest Non-Tender, Lungs Clear, No Accessory Muscle Use, No Respiratory Distress, Normal Breath Sounds Cardiovascular: No Edema, No JVD, No Murmur, No Gallop, Normal Peripheral Pulses, Regular Rate/Rhythm Breast Exam: Deferred Gastrointestinal: No Organomegaly, Non Tender, No Pulsatile Mass, Normal Bowel Sounds, Soft Genitalia: Deferred Pelvic: Deferred Rectal: Deferred Extremities: No calf tenderness, Normal capillary refill, Normal inspection, Normal range of motion, Non-tender, No pedal edema Musculoskeletal : Apperance: Normal Neurologic: Alert, assembler wet wash II-XII nml as Tested, No Motor Deficits, Normal Affect, Normal Mood, No Sensory Deficits Cerebellar Function: Normal Reflexes: Normal Skin: Dry, Normal Color, Warm Lymphatic: No Adenopathy Was a procedure done? Was a procedure done?: No GI differential Dx Differential Diagnosis: Appendicitis, Bowel Obstruction, Cholangitis, Cholecystitis, Constipation, Diverticular disease, Gastritis/PUD, Gastroenteritis, GI hemorrhage, Hernia, UTI, Dehydration, Kidney Stone, Other X-Ray, Labs, Meds, VS Vital Signs Date Time Temp Pulse Resp B/P (MAP) Pulse Ox O2 Delivery O2 Flow Rate FiO2 06/28/25 01:39 83 14 97 Room Air* 0 21 06/28/25 01:00 83 14 166/72 (103) 96 06/28/25 00:02 80 16 154/76 06/27/25 23:33 98.2 82 16 164/84 (110) 98 98.2 06/27/25 22:52 82 06/27/25 22:45 98.2 85 24 191/87 98 98.2 Lab Test 06/28/25 01:32 06/27/25 23:42 Range/Units Urine Color Light-yellow Yellow Urine Clarity Clear Clear Urine pH 7.5 5.0-9.0 Urine Specific [place] 1.009 1.001-1.035 Urine Protein Negative Negative Urine Ketones 1+ H Negative Urine Blood Negative Negative /uL Urine Nitrite Negative Negative Urine Bilirubin Negative Negative Urine Urobilinogen Normal Negative mg/dL Urine Leukocyte Esterase Negative Negative /uL Urine RBC None seen 0 - 4 /hpf Urine Microscopic WBC < 1 0-5 /HPF Urine Squamous Epithelial Cells None seen <5 /hpf Urine Amorphous Crystals Few None Seen /hpf Urine Bacteria None seen None Seen /hpf Urine Glucose Normal Normal mg/dL White Blood Count 3.8 L 4.4-10.8 10^3/uL Red Blood Count 2.93 L 4.0-5.20 10^6/uL Hemoglobin 9.9 L 12.2-16.2 g/dL Hematocrit 28.0 L 36.0-46.0 % Mean Corpuscular Volume 95.7 80.0-100.0 fL Mean Corpuscular Hemoglobin 33.9 H 28.0-32.0 pg Mean Corpuscular Hemoglobin Concent 35.4 32.0-36.0 g/dL Red Cell Distribution Width 12.5 11.8-14.3 % Platelet Count 229 140-450 10^3/uL Mean Platelet Volume 6.8 L 6.9-10.8 fL Neutrophils (%) (Auto) 60.2 37.0-80.0 % Lymphocytes (%) (Auto) 22.8 10.0-50.0 % Monocytes (%) (Auto) 11.7 0.0-12.0 % Eosinophils (%) (Auto) 4.9 0.0-7.0 % Basophils (%) (Auto) 0.4 0.0-2.0 % Neutrophils # (Auto) 2.3 1.6-8.6 10 ^3/uL Lymphocytes # (Auto) 0.9 0.4-5.4 10 ^3/uL Monocytes # (Auto) 0.4 0-1.3 10 ^3/uL Eosinophils # (Auto) 0.2 0-0.8 10 ^3/uL Basophils # (Auto) 0 0-0.2 10 ^3/uL Nucleated Red Blood Cells 0.0 % Sodium Level 124 L 136-145 mmol/L Potassium Level 3.4 L 3.5-5.1 mmol/L Chloride Level 94 L 98-107 mmol/L Carbon Dioxide Level 22 20-31 mmol/L Anion Gap 8 5-15 Blood Urea Nitrogen 10 9-23 mg/dL Creatinine 0.61 0.550-1.02 mg/dL Glomerular Filtration Rate Calc 86 >90 mL/min BUN/Creatinine Ratio 16.4 10.0-20.0 Serum Glucose 102 74-106 mg/dL Calcium Level 8.8 8.7-10.4 mg/dL Total Bilirubin 0.7 0.2-1.0 mg/dL Aspartate Amino Transferase (AST) 22 13-40 U/L Alanine Aminotransferase (ALT) 11 7-40 U/L Alkaline Phosphatase 73 46-116 U/L Total Protein 6.4 5.7-8.2 g/dL Albumin 3.7 3.2-4.8 g/dL Lipase 24 12-53 U/L Current Medications Medications (Trade) Dose Ordered Sig/Leidy Route Start Time Stop Time Status Last Admin Ondansetron HCl (Zofran) 4 mg ONCE ONCE IV 06/27/25 23:30 06/27/25 23:31 DC 06/28/25 00:02 Sodium Chloride 1,000 ml @ 1,000 mls/hr Q1H ONCE IVB 06/27/25 23:30 06/28/25 00:29 DC 06/28/25 00:03 Morphine Sulfate 2 mg ONCE ONCE IV 06/27/25 23:30 06/27/25 23:31 DC 06/28/25 00:02 Time of 1ST Reevaluation: 23:40 Reevaluation 1ST: Unchanged Patient Education/Counseling: Diagnosis, Treatment, Prognosis Family Education/Counseling: No Family Present SEPSIS Sepsis Screen Date sepsis recognized/suspect: Jun 27, 2025 Time Sepsis recognized/suspect: 2244 Recent Procedure: No On Antibiotic Therapy: No Respiratory Rate >20: No Heart Rate >90: No Temp<36 C (96.8 F) or >38.3 C: No SBP <90 or MAP <65 mmHG: No New Acute Mental Status Change: No Is the patient on CPAP, BIPAP,: No Physician Orders Electrocardigram (06/27/25 23:05) Ct Ab Pel Wo Con-No Oral Or Iv (06/27/25 23:27) Vital Signs Date Time Temp Pulse Resp B/P (MAP) Pulse Ox O2 Delivery O2 Flow Rate FiO2 06/28/25 01:39 83 14 97 Room Air* 0 21 06/28/25 01:00 83 14 166/72 (103) 96 06/28/25 00:02 80 16 154/76 06/27/25 23:33 98.2 82 16 164/84 (110) 98 98.2 06/27/25 22:52 82 06/27/25 22:45 98.2 85 24 191/87 98 98.2 Laboratory Tests Test 06/27/25 23:42 White Blood Count 3.8 10^3/uL (4.4-10.8) L Medications Medications Dose Ordered Sig/Leidy Route Start Time Stop Time Status Last Admin Dose Admin Morphine Sulfate 2 mg ONCE ONCE IV 06/27/25 23:30 06/27/25 23:31 DC 06/28/25 00:02 Ondansetron HCl 4 mg ONCE ONCE IV 06/27/25 23:30 06/27/25 23:31 DC 06/28/25 00:02 Sodium Chloride 1,000 ml @ 1,000 mls/hr Q1H ONCE IVB 06/27/25 23:30 06/28/25 00:29 DC 06/28/25 00:03 Departure 1 Departure Time of Disposition: 02:05 Impression: Primary Impression: Hyponatremia Additional Impressions: Dehydration Intractable abdominal pain Disposition: ADMITTED INPATIENT Admit to: Med Surg Condition: Guarded Comments 89-year-old female with lower abdominal pain. Her white blood cell count is low at 3.8. Mild anemia with a H&H of 10 and 28. Severe hyponatremia 124. Mild hypokalemia 3.4. Hypochloremia 94. Urinalysis has ketones in it. I suspect dehydration. CT of the abdomen and pelvis shows no acute pathology but there is some signs of constipation and diverticulosis. Patient will need to be admitted for hydration and correction of her hyponatremia and supportive care and further workup Critical Care Note Critical Care Time?: Yes (35 min-critical care time only) Critical care comment: Total critical care time: Approximately 36 minutes Due to a high probability of clinically significant, life threatening deterioration, the patient required my highest level of preparedness to intervene emergently and I personally spent this critical care time directly and personally managing the patient. This critical care time included obtaining a history; examining the patient; pulse oximetry; ordering and review of studies; arranging urgent treatment with development of a management plan; evaluation of patient's response to treatment; frequent reassessment; and, discussions with other providers. This critical care time was performed to assess and manage the high probability of imminent, life-threatening deterioration that could result in multi-organ failure. It was exclusive of separately billable procedures and treating other patients. Stability Stability form required: No Heart Score Heart Score: Heart Score Response (Comments) Value History N/A 0 EKG N/A 0 Age N/A 0 Risk Factors N/A 0 Troponin N/A 0 Total 0 I personally scribed for LEENA OVIEDO MD ([email or web address]) on 06/27/25 at 23:22. Electronically submitted by Grace Sanderson ([email or web address]). LEENA OVIEDO MD Jun 27, 2025 23:22
[2025-06-27 23:52] LABS: Hematocrit 28.0 % (36.0-46.0); Hemoglobin 9.9 g/dL (12.2-16.2); Mean Corpuscular Hemoglobin 33.9 pg (28.0-32.0); Mean Corpuscular Volume 95.7 fL (80.0-100.0); Nucleated Red Blood Cells % 0.0 %
[2025-06-28] VITALS (7 sets, daily range): BP systolic 138–148; BP diastolic 60–73; PULSE 68–83; RESP 14–19; TEMP 98.1–98.6; O2SAT 95–97
[2025-06-28] MEDS: MORPHINE SULFATE 4 MG/ML SYR/VIAL IV ONE (00:02)
[2025-06-28] MEDS: ONDANSETRON HCL 4 MG/2 ML VIAL IV ONE (00:02)
[2025-06-28] MEDS: SODIUM CHLORIDE 0.9% 1,000 ML IVB ONE (00:03)
[2025-06-28 00:10] LABS: Alanine Aminotransferase 11 U/L (7-40); Albumin 3.7 g/dL (3.2-4.8); Alkaline Phosphatase 73 U/L (46-116); Anion Gap 8 (5-15); BUN/Creatinine Ratio 16.4 (10.0-20.0); Bilirubin, Total 0.7 mg/dL (0.2-1.0); Blood Urea Nitrogen 10 mg/dL (9-23); Calcium 8.8 mg/dL (8.7-10.4); Carbon Dioxide 22 mmol/L (20-31); Glucose 102 mg/dL (74-106); Lipase 24 U/L (12-53); Total Protein 6.4 g/dL (5.7-8.2)
[2025-06-28 00:13] LABS: Chloride 94 mmol/L (98-107); Potassium 3.4 mmol/L (3.5-5.1); Sodium 124 mmol/L (136-145)
--- NOTE | 2025-06-28 01:04 | DVH ---
Exam: CT CT AB PEL WO CON-NO ORAL OR IV History: lower abd pain Comparison Study: CT ABDOMEN W AND WO on DOS: 12/22/24, CT CT AB PEL WO CON-NO ORAL OR IV on DOS: 12/14, CT CT AB PEL WO CON-NO ORAL OR IV on DOS: 05/11/24 Technique: Multidetector spiral CT of the abdomen was performed from lung bases to pubic symphysis. I maging was performed without IV contrast. Axial, coronal and sagittal multiplanar reformats were obta ined from the axial data set by the technologist. Radiation Dose : 1. Abdomen/Pelvis: CTDIvol 5.07 mGy, DLP 285.06 mGy*cm. Findings: Evaluation of solid organs is limited due to lack of intravenous contrast use. Lung Bases: No acute or significant lung base finding. Normal heart size. No pleural or pericardial effusion. Liver: The liver is normal in size. No focal lesions. Gallbladder and Biliary Tree: Status post cholecystectomy. Spleen: Unremarkable Pancreas: The pancreas is grossly normal in appearance. Adrenal Glands: Unremarkable Kidneys: Kidneys are grossly normal without calculi or hydronephrosis. 3.5 cm right inferior pole yung al cyst. Bladder: Grossly unremarkable for degree of distention. Bowel: The stomach is grossly normal in appearance. Retained colorectal stool. Small bowel and colon are otherwise normal in caliber and distribution. Diverticulosis coli without CT evidence of acute di verticulitis. The appendix is normal. Ascites: Absent Lymphadenopathy: No mesenteric, retroperitoneal or periportal lymphadenopathy. Abdominal Wall and Mesentery: Unremarkable. Vasculature: The visualized abdominal aorta is mildly tortuous in its course and otherwise normal in size and caliber. Atherosclerotic vascular calcifications. Evaluation of abdominal and pelvic vessels is limited due to lack of intravenous contrast. Pelvic Organs: Uterine calcifications, possibly fibroids. Musculoskeletal: No aggressive focal bony lesions, acute fractures or dislocation. IMPRESSION: 1. No acute abdominal or pelvic findings. 2. Retained colorectal stool. 3. Diverticulosis coli without CT evidence of acute diverticulitis. Radiation optimization: All CT scans at this facility use at least one of these dose optimization abebe hniques: automated exposure control mA and/or kV adjustment per patient size (includes targeted exam s where dose is matched to clinical indication) or iterative reconstruction.
[2025-06-28 02:01] LABS: Urine Amorphous Crystal FEW /hpf (None Seen); Urine Protein, UAD Negative (Negative)
[2025-06-28] MEDS ORDERED: MIRT1TAB38 PO (07:55)
--- NOTE | 2025-06-28 07:58 | DVHHP2 ---
History of Present Illness Reason for Visit: Abdominal pain with nausea and vomiting History of Present Illness Stephon Metzger is an 89-year-old female with past medical history of left femur surgery, , arthritis, hyperlipidemia, hypertension, thyroid disease, osteoporosis, and neuropathy who presents to the ED with abdominal pain with nausea and vomiting that started yesterday. Patient endorses that her pain is 8/10 throbbing and constant. She states that rest does make it better. Patient also reports that she is compliant with her medications. She states that she lives at home with her family and uses a front wheel walker to ambulate. Patient denies any recent trauma or injury, recent sick contacts, recent travels, recent ingestion of spoiled food, chest pain, shortness of breath, fever, chills, lightheadedness, weakness, dizziness, diarrhea, or urinary symptoms. Cardiovascular: HTN, hyperipidemia Endocrine: Hypothyroidism Past Medical History Arthritis Osteoporosis Neuropathy Past Surgical History: , Other (Left femur surgery) Family History: Other (Both parents ) Smoke: No ALCOHOL: none Drugs: None Lives: with Family Domestic Violence: Neg Review of Systems Gastrointestinal: Nausea, Vomiting, Abdominal Pain Allergies: Coded Allergies: Codeine (Verified Allergy, Unknown, Itchy, 07/31/24) Red Dye #40 (Allura Red) (Verified Allergy, Unknown, 06/27/25) Uncoded Allergies: CONTRAST DYE (Allergy, Unknown, Rash, 07/31/24) Exam Vital Signs Vital Signs Date Time Temp Pulse Resp B/P (MAP) Pulse Ox O2 Delivery O2 Flow Rate FiO2 06/28/25 05:00 81 11 153/69 (97) 93 06/28/25 01:39 Room Air* 0 21 06/27/25 23:33 98.2 98.2 General Appearance: Alert, Oriented X3, Cooperative, No acute distress HEENT: Atraumatic, PERRLA, EOMI, Mucous membr. moist/pink Respiratory: Clear to auscultation, Normal air movement Cardiovascular: Normal S1, Normal S2, No murmurs Abdominal: Soft Extremities: No clubbing, No cyanosis, Normal pulses Skin: No significant lesion Neuro: Normal speech, Normal tone, Sensation intact Psych/Mental Status: Mental status NL, Mood NL Labs/Xrays Labs Test 06/28/25 01:32 06/27/25 23:42 Range/Units Urine Color Light-yellow Yellow Urine Clarity Clear Clear Urine pH 7.5 5.0-9.0 Urine Specific [place] 1.009 1.001-1.035 Urine Protein Negative Negative Urine Ketones 1+ H Negative Urine Blood Negative Negative /uL Urine Nitrite Negative Negative Urine Bilirubin Negative Negative Urine Urobilinogen Normal Negative mg/dL Urine Leukocyte Esterase Negative Negative /uL Urine RBC None seen 0 - 4 /hpf Urine Microscopic WBC < 1 0-5 /HPF Urine Squamous Epithelial Cells None seen <5 /hpf Urine Amorphous Crystals Few None Seen /hpf Urine Bacteria None seen None Seen /hpf Urine Glucose Normal Normal mg/dL White Blood Count 3.8 L 4.4-10.8 10^3/uL Red Blood Count 2.93 L 4.0-5.20 10^6/uL Hemoglobin 9.9 L 12.2-16.2 g/dL Hematocrit 28.0 L 36.0-46.0 % Mean Corpuscular Volume 95.7 80.0-100.0 fL Mean Corpuscular Hemoglobin 33.9 H 28.0-32.0 pg Mean Corpuscular Hemoglobin Concent 35.4 32.0-36.0 g/dL Red Cell Distribution Width 12.5 11.8-14.3 % Platelet Count 229 140-450 10^3/uL Mean Platelet Volume 6.8 L 6.9-10.8 fL Neutrophils (%) (Auto) 60.2 37.0-80.0 % Lymphocytes (%) (Auto) 22.8 10.0-50.0 % Monocytes (%) (Auto) 11.7 0.0-12.0 % Eosinophils (%) (Auto) 4.9 0.0-7.0 % Basophils (%) (Auto) 0.4 0.0-2.0 % Neutrophils # (Auto) 2.3 1.6-8.6 10 ^3/uL Lymphocytes # (Auto) 0.9 0.4-5.4 10 ^3/uL Monocytes # (Auto) 0.4 0-1.3 10 ^3/uL Eosinophils # (Auto) 0.2 0-0.8 10 ^3/uL Basophils # (Auto) 0 0-0.2 10 ^3/uL Nucleated Red Blood Cells 0.0 % Sodium Level 124 L 136-145 mmol/L Potassium Level 3.4 L 3.5-5.1 mmol/L Chloride Level 94 L 98-107 mmol/L Carbon Dioxide Level 22 20-31 mmol/L Anion Gap 8 5-15 Blood Urea Nitrogen 10 9-23 mg/dL Creatinine 0.61 0.550-1.02 mg/dL Glomerular Filtration Rate Calc 86 >90 mL/min BUN/Creatinine Ratio 16.4 10.0-20.0 Serum Glucose 102 74-106 mg/dL Calcium Level 8.8 8.7-10.4 mg/dL Total Bilirubin 0.7 0.2-1.0 mg/dL Aspartate Amino Transferase (AST) 22 13-40 U/L Alanine Aminotransferase (ALT) 11 7-40 U/L Alkaline Phosphatase 73 46-116 U/L Total Protein 6.4 5.7-8.2 g/dL Albumin 3.7 3.2-4.8 g/dL Lipase 24 12-53 U/L Exam: CT CT AB PEL WO CON-NO ORAL OR IV History: lower abd pain Comparison Study: CT ABDOMEN W AND WO on DOS: 12/22/24, CT CT AB PEL WO CON-NO ORAL OR IV on DOS: 12/14/24, CT CT AB PEL WO CON-NO ORAL OR IV on DOS: 05/11/24 Technique: Multidetector spiral CT of the abdomen was performed from lung bases to pubic symphysis. Imaging was performed without IV contrast. Axial, coronal a nd sagittal multiplanar reformats were obtained from the axial data set by the technologist. Radiation Dose : 1. Abdomen/Pelvis: CTDIvol 5.07 mGy, DLP 285.06 mGy*cm. Findings: Evaluation of solid organs is limited due to lack of intravenous contrast use. Lung Bases: No acute or significant lung base finding. Normal heart size. No pleural or pericardial effusion. Liver: The liver is normal in size. No focal lesions. Gallbladder and Biliary Tree: Status post cholecystectomy. Spleen: Unremarkable Pancreas: The pancreas is grossly normal in appearance. Adrenal Glands: Unremarkable Kidneys: Kidneys are grossly normal without calculi or hydronephrosis. 3.5 cm right inferior pole renal cyst. Bladder: Grossly unremarkable for degree of distention. Bowel: The stomach is grossly normal in appearance. Retained colorectal stool. Small bowel and colon are otherwise normal in caliber and distribution. Diverticulosis coli without CT evidence of acute diverticulitis. The appendix is normal. Ascites: Absent Lymphadenopathy: No mesenteric, retroperitoneal or periportal lymphadenopathy. Abdominal Wall and Mesentery: Unremarkable. Vasculature: The visualized abdominal aorta is mildly tortuous in its course and otherwise normal in size and caliber. Atherosclerotic vascular calcifications. Evaluation of abdominal and pelvic vessels is limited due to lack of intravenous contrast. Pelvic Organs: Uterine calcifications, possibly fibroids. Musculoskeletal: No aggressive focal bony lesions, acute fractures or dislocation. IMPRESSION: 1. No acute abdominal or pelvic findings. 2. Retained colorectal stool. 3. Diverticulosis coli without CT evidence of acute diverticulitis. SEPSIS Sepsis Screen Date sepsis recognized/suspect: Jun 28, 2025 Time Sepsis recognized/suspect: 0153 Recent Procedure: No On Antibiotic Therapy: No Respiratory Rate >20: No Heart Rate >90: No Temp<36 C (96.8 F) or >38.3 C: No SBP <90 or MAP <65 mmHG: No New Acute Mental Status Change: No Is the patient on CPAP, BIPAP,: No Vital Signs Date Time Temp Pulse Resp B/P (MAP) Pulse Ox O2 Delivery O2 Flow Rate FiO2 06/28/25 05:00 81 11 153/69 (97) 93 06/28/25 03:00 87 9 160/76 (104) 96 06/28/25 02:54 82 18 154/72 06/28/25 01:39 83 14 97 Room Air* 0 21 06/28/25 01:00 83 14 166/72 (103) 96 06/28/25 00:02 80 16 154/76 Laboratory Tests Test 06/27/25 23:42 White Blood Count 3.8 10^3/uL (4.4-10.8) L Medications Medications Dose Ordered Sig/Leidy Route Start Time Stop Time Status Last Admin Dose Admin Morphine Sulfate 2 mg ONCE ONCE IV 06/27/25 23:30 06/27/25 23:31 DC 06/28/25 00:02 2 MG Ondansetron HCl 4 mg ONCE ONCE IV 06/27/25 23:30 06/27/25 23:31 DC 06/28/25 00:02 4 MG Sodium Chloride 1,000 ml @ 1,000 mls/hr Q1H ONCE IVB 06/27/25 23:30 06/28/25 00:29 DC 06/28/25 00:03 1,000 MLS/HR Assessment/Plan Assessment/Plan Assessment Intractable abdominal pain with nausea and vomiting likely due to constipation unrelieved with p.o. meds Hypertensive urgency Acute hypoxic respiratory failure Anemia Hyponatremia Hypokalemia Diverticulosis History of left femur surgery History of History of arthritis History of hyperlipidemia History of hypertension History of thyroid disease History of osteoporosis History of neuropathy Plan Antihypertensive Supportive oxygen Replete lytes UA CT abdomen and pelvis noted Antiemetics Pain management NS 1 L given in ED Lipase EKG Bowel regimen Diet IV fluids Home medications reconciled DVT prophylaxis-SCDs PUD prophylaxis-H2 blockers Discussed plan of care with patient and nurse [id number] Preventive counseling healthy eating habits, physical activity, and regular checkups Plan discussed with: Patient Date of Service: Jun 28, 2025 Billing Provider: SCOTT GARCIA Common Visit Codes: [id number] INP/OBS CARE (HIGH) Secondary Visit Codes: [id number] COUNSELING IND SCOTT GARCIA Jun 28, 2025 07:58
[2025-06-28] MEDS ORDERED: ONDANSETRON HCL 4 MG/2 ML VIAL IV PRN (08:00)
[2025-06-28] MEDS: FAMOTIDINE (10MG/ML) 2ML VL IV SCH (09:37)
[2025-06-28] MEDS: POTASSIUM EFFERVESENT TAB 25 MEQ PO ONE (09:37)
[2025-06-28] MEDS: LOSARTAN POTASSIUM 50 MG TAB PO SCH (09:38)
[2025-06-28] MEDS: OXYBUTYNIN CHL 5 MG TAB PO SCH (09:38)
[2025-06-28] MEDS: CARVEDILOL 3.125 MG TAB PO SCH (09:39)
[2025-06-28] MEDS: GABAPENTIN 400 MG CAP PO SCH (09:39)
[2025-06-28] MEDS: SERTRALINE HCL 50 MG TAB PO SCH (09:39)
[2025-06-28] MEDS: LEVOTHYROXINE SODIUM 88 MCG TAB PO SCH (09:40)
[2025-06-28] MEDS: POLYETHYLENE GLYCOL 17 GM PWDR PO SCH (14:43)
--- NOTE | 2025-06-28 16:44 | DVHPN2 ---
Subjective 89-year-old female with a known history of hypertension, dyslipidemia, hypothyroidism, peripheral neuropathy initially presented to the hospital with the abdominal pain nausea and vomiting found to have constipation. Patient is currently denies any nausea and vomiting Changes from previous H/P or p: No Changes Gastrointestinal: Nausea, Vomiting, Abdominal Pain Objective Vitals Vital Signs Date Time Temp Pulse Resp B/P (MAP) Pulse Ox O2 Delivery O2 Flow Rate FiO2 06/28/25 13:43 98.1 68 17 148/60 (89) 97 98.1 06/28/25 09:21 Room Air* 0 21 Intake/Output Intake and Output 06/28/25 07:00 Intake Total 1000 ml Balance 1000 ml Intake IV Total 1000 ml Exam HEENT pupils are reactive Neck is supple CV is S1-S2 regular rate and rhythm Respiratory diminished breath sounds bases GI positive bowel sound Extremity no edema 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 Medications Current Medications Medications Dose Ordered Sig/Leidy Route Start Time Stop Time Status Last Admin Dose Admin Ondansetron HCl 4 mg Q4HP PRN IV 06/28/25 08:00 Acetaminophen 650 mg Q6HP PRN PO 06/28/25 08:00 Famotidine 20 mg DAILY IV 06/28/25 10:00 06/28/25 09:37 20 MG Atorvastatin Calcium 20 mg HS PO 06/28/25 22:00 Carvedilol 3.125 mg BID PO 06/28/25 10:00 06/28/25 09:39 3.125 MG Gabapentin 400 mg DAILY PO 06/28/25 10:00 06/28/25 09:39 400 MG Levothyroxine Sodium 88 mcg DAILY PO 06/28/25 10:00 06/28/25 09:40 88 MCG Oxybutynin Chloride 5 mg DAILY PO 06/28/25 10:00 06/28/25 09:38 5 MG Sertraline HCl 50 mg DAILY PO 06/28/25 10:00 06/28/25 09:39 50 MG Losartan Potassium 100 mg DAILY PO 06/28/25 10:00 06/28/25 09:38 100 MG Mirtazapine 15 mg HS PO 06/28/25 22:00 Polyethylene Glycol 17 gm DAILY PO 06/28/25 10:00 06/28/25 14:43 17 GM Sennosides 8.6 mg HS PO 06/28/25 22:00 Laboratory Results Laboratory Tests 06/27/25 23:42 Chemistry Test 06/27/25 23:42 Albumin 3.7 g/dL (3.2-4.8) Calcium Level 8.8 mg/dL (8.7-10.4) Total Protein 6.4 g/dL (5.7-8.2) Lipid panel Test 06/27/25 23:42 Lipase 24 U/L (12-53) LFT Test 06/27/25 23:42 Alanine Aminotransferase (ALT) 11 U/L (7-40) Alkaline Phosphatase 73 U/L (46-116) Aspartate Amino Transferase (AST) 22 U/L (13-40) Total Bilirubin 0.7 mg/dL (0.2-1.0) Urinalysis Test 06/28/25 01:32 Urine Color Light-yellow (Yellow) Urine Clarity Clear (Clear) Urine pH 7.5 (5.0-9.0) Urine Specific [place] 1.009 (1.001-1.035) Urine Protein Negative (Negative) Urine Ketones 1+ (Negative) H Urine Blood Negative /uL (Negative) Urine Nitrite Negative (Negative) Urine Bilirubin Negative (Negative) Urine Urobilinogen Normal mg/dL (Negative) Urine Leukocyte Esterase Negative /uL (Negative) Urine RBC None seen /hpf (0 - 4) Urine Microscopic WBC < 1 /HPF (0-5) Urine Squamous Epithelial Cells None seen /hpf (<5) Urine Amorphous Crystals Few /hpf (None Seen) Urine Bacteria None seen /hpf (None Seen) Urine Glucose Normal mg/dL (Normal) Assessment/Plan Assessment/Plan 89-year-old female with a known history of hypertension, dyslipidemia, peripheral neuropathy who initially presented to the hospital with the abdominal pain nausea and vomiting found to have 1. Intractable nausea and vomiting with the abdominal pain suspect gastroenteritis 2. Constipation 3. Hypertension 4. Dyslipidemia 5. Peripheral neuropathy -CT abdomen and pelvis shows no evidence of any acute pathology besides colorectal stool, bowel regimen, diet as tolerated. Plan discussed with: Patient Date of Service: Jun 28, 2025 Billing Provider: JACOB BOYD MD Common Visit Codes: [id number] INP/OBS CARE(MOD) JACOB BOYD MD Jun 28, 2025 16:44
[2025-06-28] MEDS: ACETAMINOPHEN 325 MG TAB PO PRN (17:17)
[2025-06-28] MEDS: ATORVASTATIN 20 MG TAB PO SCH (21:27)
[2025-06-28] MEDS: MIRTAZAPINE 30 MG TAB PO SCH (21:28)
[2025-06-28] MEDS: SENNA 8.6 MG TAB PO SCH (21:29)
[2025-06-29 01:00] VITALS: BP 154/79; PULSE 63; RESP 17; TEMP 97.7; O2SAT 97
[2025-06-29 05:00] VITALS: BP 135/72; PULSE 71; RESP 16; TEMP 97.9; O2SAT 98
[2025-06-29 06:07] LABS: Hemoglobin 10.3 g/dL (12.2-16.2); Nucleated Red Blood Cells % 0.0 %
[2025-06-29 06:09] LABS: Hematocrit 29.3 % (36.0-46.0); Mean Corpuscular Hemoglobin 34.2 pg (28.0-32.0); Mean Corpuscular Volume 97.4 fL (80.0-100.0)
[2025-06-29 06:16] LABS: Alanine Aminotransferase 10 U/L (7-40); Albumin 3.5 g/dL (3.2-4.8); Alkaline Phosphatase 70 U/L (46-116); Anion Gap 8 (5-15); BUN/Creatinine Ratio 14.3 (10.0-20.0); Bilirubin, Total 0.6 mg/dL (0.2-1.0); Carbon Dioxide 24 mmol/L (20-31); Glucose 88 mg/dL (74-106); Potassium 3.6 mmol/L (3.5-5.1); Total Protein 6.0 g/dL (5.7-8.2)
[2025-06-29 06:24] LABS: Blood Urea Nitrogen 8 mg/dL (9-23); Calcium 8.5 mg/dL (8.7-10.4); Chloride 96 mmol/L (98-107); Sodium 128 mmol/L (136-145)
[2025-06-29 08:50] VITALS: BP 157/81; PULSE 66; RESP 16; TEMP 97.5; O2SAT 97
--- NOTE | 2025-06-29 11:37 | ECG ---
[facility] Test Date: 2025-06-27 Test Time: 22:52:01 Pat Name: DOREEN NGUYỄN Department: [facility] ED Patient ID: [id number] Room: [facility]0T B Gender: F Property Officer: DRE : 1935 Requested By: EMERGENCY EMERGENCY Order Number: [id number] Reading MD: Tino Sousa Measurements Intervals [place] Rate: 82 P: 23 PA: 193 QRS: -54 QRSD: 120 T: 27 QT: 420 QTc: 491 Interpretive Statements Sinus rhythm Left anterior fascicular block Left ventricular hypertrophy ST elevation, consider inferior injury Electronically Signed On 07-02-2025 10:18:01 PDT by Tino Sousa Please click the below link to view image of tracing.
[2025-06-29 13:00] VITALS: BP 131/65; PULSE 65; RESP 17; TEMP 98.1; O2SAT 98
--- NOTE | 2025-06-29 13:46 | DVHPN2 ---
Subjective 89-year-old female with a known history of hypertension, dyslipidemia, hypothyroidism, peripheral neuropathy initially presented to the hospital with the abdominal pain nausea and vomiting found to have constipation. Patient is currently denies any nausea and vomiting, still little confused has a sitter at bedside. 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 Medications Current Medications Medications Dose Ordered Sig/Leidy Route Start Time Stop Time Status Last Admin Dose Admin Ondansetron HCl 4 mg Q4HP PRN IV 06/28/25 08:00 Acetaminophen 650 mg Q6HP PRN PO 06/28/25 08:00 06/28/25 17:17 650 MG Famotidine 20 mg DAILY IV 06/28/25 10:00 06/28/25 09:37 20 MG Atorvastatin Calcium 20 mg HS PO 06/28/25 22:00 06/28/25 21:27 20 MG Carvedilol 3.125 mg BID PO 06/28/25 10:00 06/29/25 09:39 3.125 MG Gabapentin 400 mg DAILY PO 06/28/25 10:00 06/28/25 09:39 400 MG Levothyroxine Sodium 88 mcg DAILY PO 06/28/25 10:00 06/29/25 09:34 88 MCG Oxybutynin Chloride 5 mg DAILY PO 06/28/25 10:00 06/28/25 09:38 5 MG Sertraline HCl 50 mg DAILY PO 06/28/25 10:00 06/28/25 09:39 50 MG Losartan Potassium 100 mg DAILY PO 06/28/25 10:00 06/29/25 09:40 100 MG Mirtazapine 15 mg HS PO 06/28/25 22:00 06/28/25 21:28 15 MG Polyethylene Glycol 17 gm DAILY PO 06/28/25 10:00 06/29/25 12:27 17 GM Sennosides 8.6 mg HS PO 06/28/25 22:00 06/28/25 21:29 8.6 MG Laboratory Results Laboratory Tests 06/29/25 04:48 Chemistry Test 06/29/25 04:48 Albumin 3.5 g/dL (3.2-4.8) Calcium Level 8.5 mg/dL (8.7-10.4) L Total Protein 6.0 g/dL (5.7-8.2) LFT Test 06/29/25 04:48 Alanine Aminotransferase (ALT) 10 U/L (7-40) Alkaline Phosphatase 70 U/L (46-116) Aspartate Amino Transferase (AST) 23 U/L (13-40) Total Bilirubin 0.6 mg/dL (0.2-1.0) Urinalysis Test 06/28/25 01:32 Urine Color Light-yellow (Yellow) Urine Clarity Clear (Clear) Urine pH 7.5 (5.0-9.0) Urine Specific [place] 1.009 (1.001-1.035) Urine Protein Negative (Negative) Urine Ketones 1+ (Negative) H Urine Blood Negative /uL (Negative) Urine Nitrite Negative (Negative) Urine Bilirubin Negative (Negative) Urine Urobilinogen Normal mg/dL (Negative) Urine Leukocyte Esterase Negative /uL (Negative) Urine RBC None seen /hpf (0 - 4) Urine Microscopic WBC < 1 /HPF (0-5) Urine Squamous Epithelial Cells None seen /hpf (<5) Urine Amorphous Crystals Few /hpf (None Seen) Urine Bacteria None seen /hpf (None Seen) Urine Glucose Normal mg/dL (Normal) Assessment/Plan Assessment/Plan 89-year-old female with a known history of hypertension, dyslipidemia, peripheral neuropathy who initially presented to the hospital with the abdominal pain nausea and vomiting found to have 1. Intractable nausea and vomiting with the abdominal pain suspect gastroenteritis , resolved 2. Constipation 3. Hypertension 4. Dyslipidemia 5. Peripheral neuropathy 6. Acute delirium -CT abdomen and pelvis shows no evidence of any acute pathology besides colorectal stool, bowel regimen, diet as tolerated. -sitter at bedside, [place] plan once sitter is off Plan discussed with: Patient Date of Service: Jun 29, 2025 Billing Provider: JACOB BOYD MD Common Visit Codes: [id number] INP/OBS CARE(MOD) JACOB BOYD MD Jun 29, 2025 13:46
[2025-06-29 17:29] VITALS: BP 154/86; PULSE 73; RESP 16; TEMP 98.7; O2SAT 98
== END 2025-06-29 18:37 | disposition home or self-care (01) | DRG 392 ==
LOC: EDBD 22:39 → ER 22:39 → OVERFLOW 06-28 07:52 → WEST WING 06-28 13:37 → TELE-WESTW 06-29 10:41
PROVIDERS: ADMIT Internal Medicine; ATTEND Internal Medicine
DX: A08.4 Viral intestinal infection, unspecified (principal); E87.1 Hypo-osmolality and hyponatremia; K59.00 Constipation, unspecified; E87.6 Hypokalemia; G62.9 Polyneuropathy, unspecified; E78.5 Hyperlipidemia, unspecified; I10 Essential (primary) hypertension; E86.0 Dehydration; E03.9 Hypothyroidism, unspecified; M81.0 Age-related osteoporosis without current pathological fracture; Z88.5 Allergy status to narcotic agent; Z91.041 Radiographic dye allergy status; Z79.899 Other long term (current) drug therapy
CPT/HCPCS: 36415; 74176; 80053; 81001; 83690; 85025; 93005; 99291; G0378; J2405; J3490

== ENCOUNTER → 2025-08-13 | Outpatient (CLI) | payer MEDICARE, BC ==
[~2025-08-13] MED LIST changes: +MIRT1TAB38 PO
[2025-08-13 13:17] LABS: Hematocrit 30.9 % (36.0-46.0); Hemoglobin 10.3 g/dL (12.2-16.2); Mean Corpuscular Hemoglobin 31.9 pg (28.0-32.0); Mean Corpuscular Volume 96.1 fL (80.0-100.0); Nucleated Red Blood Cells % 0.0 %
[2025-08-13 13:47] LABS: Alanine Aminotransferase 11 U/L (7-40); Albumin 3.7 g/dL (3.2-4.8); Alkaline Phosphatase 57 U/L (46-116); Anion Gap 10 (5-15); BUN/Creatinine Ratio 12.5 (10.0-20.0); Bilirubin, Total 0.5 mg/dL (0.2-1.0); Blood Urea Nitrogen 10 mg/dL (9-23); Calcium 9.0 mg/dL (8.7-10.4); Carbon Dioxide 28 mmol/L (20-31); Chloride 102 mmol/L (98-107); Glucose 86 mg/dL (74-106); Potassium 3.6 mmol/L (3.5-5.1); Sodium 140 mmol/L (136-145); Total Protein 6.5 g/dL (5.7-8.2)
== END | disposition home or self-care (01) ==
LOC: LAB 12:47
PROVIDERS: ATTEND Nurse Practitioner
DX: M81.0 Age-related osteoporosis without current pathological fracture (principal); E55.9 Vitamin D deficiency, unspecified; Z79.899 Other long term (current) drug therapy
CPT/HCPCS: 36415; 80053; 82306; 85025

== ENCOUNTER 2025-08-15 17:27 | Inpatient (IN) | payer MEDICARE, BC ==
[~2025-08-15] VITALS: Ht 152.4 cm; Wt 46.8 kg
--- NOTE | 2025-08-15 17:35 | ED.PDOC ---
GI ASSESSMENT HPI Comments This is a 89 year old female FLEXA presenting to the ED with chief complaint of abdominal pain. Patient reports that she has been experiencing 6/10 lower abdominal pain since yesterday with associated chills, weakness, and intermittent nausea and tarry stools. Patient relays that she is currently being worked up by her PCP for possible abdominal mass/hernia. EMS states patient received 1g of Tylenol en route to the ED for pain relief. Patient denies any vomiting, diarrhea, chest pain, SOB, dizziness, headache, or dysuria. Time Seen by MD: 17:33 Primary Care Provider: DAWN Reviewed Notes: Nurses Notes, Garage Manager Notes, Medications, Allergies Allergies: Coded Allergies: Codeine (Verified Allergy, Unknown, Itchy, 07/31/24) Red Dye #40 (Allura Red) (Verified Allergy, Unknown, 06/27/25) Uncoded Allergies: CONTRAST DYE (Allergy, Unknown, Rash, 07/31/24) Home Meds Active Scripts Gabapentin (Once-Daily) (Gabapentin) 300 Mg Tab, 300 MG PO Q6HP PRN, #60 TAB Prov:LEENA OVIEDO MD 02/14/25 Atorvastatin Calcium (ATORVASTATIN CALCIUM) 20 Mg Tab, 20 MG PO HS for 30 Days, #30 TAB Prov:NIK PASCUAL MD 01/31/23 Reported Medications Mirtazapine (Mirtazapine Oral Disintegrating Tablet) 15 Mg Tab, 1 TAB PO 06/28/25 Losartan Potassium (Losartan Potassium) 50 Mg Tab, 1 TAB PO DAILY 06/09/24 Gabapentin (Gabapentin) 100 Mg Cap, CAP PO 06/09/24 Carvedilol (Coreg) 3.125 Mg Tab, 1 TAB PO BID, #180 TAB 1 Refill 01/29/23 Losartan Potassium (Losartan Potassium) 100 Mg Tab, 100 MG PO DAILY for 30 Days, MG 01/29/23 Gabapentin (Gabapentin) 400 Mg Cap, 1 CAP PO DAILY 01/28/23 Sertraline Hcl (Sertraline Hcl) 50 Mg Tab, 1 TAB PO DAILY 01/28/23 Pantoprazole Sodium Sesquihydr (Pantoprazole Sodium) 40 Mg Tab, 1 TAB PO DAILY 01/28/23 Levothyroxine Sodium (Levothyroxine Sodium) 88 Mcg Tab, 1 TAB PO DAILY 01/28/23 Oxybutynin Chloride (Oxybutynin Chloride) 5 Mg Tab, 1 TAB PO DAILY 01/28/23 Information Source: Patient, Emergency Med Personnel Mode of Arrival: EMS Timing: Days Duration: Since onset Prehospital treatment: None Quality: Aching Vomitus: None Stool: Tarry Severity: Moderate Recent: None Recent Hx of: None Pain Location: Suprapubic Modifying Factors: Nothing Associated sign and symptoms: Nausea, Abdominal Pain Past Medical History PAST MEDICAL HISTORY: Arthritis, High Lipids, HTN, Thyroid Surgical History: Surgical History (Other): Cataracts, Left femur surgery FEED GRINDER History: Denies all FEED GRINDER Hx Family History Family History: Reviewed,noncontributory to illness Social History Smoker: Non-Smoker Alcohol: Denies ETOH Use Drugs: Denies Drug Use Lives In: Home Constitutional: reports: weakness; denies: chills, diaphoresis, fatigue, fever, malaise, sweats, others EENTM: denies: blurred vision, double vision, ear bleeding, ear discharge, ear drainage, ear pain, ear ringing, eye pain, eye redness, hearing loss, mouth pain, mouth swelling, nasal discharge, nose bleeding, nose congestion, nose pain, photophobia, tearing, throat pain, throat swelling, voice changes, others Respiratory: denies: cough, hemoptysis, orthopnea, SOB at rest, shortness of breath, SOB with excertion, stridor, wheezing, others Cardiovascular: denies: chest pain, dizzy spells, diaphoresis, Dyspnea on exertion, edema, irregular heart beat, left arm pain, lightheadedness, palpita tions, PND, syncope, others Gastrointestinal: reports: abdominal pain, nausea; denies: abdomen distended, blood streaked bowels, constipated, diarrhea, dysphagia, difficulty swallowing, hematemesis, melena, poor appetite, poor fluid intake, rectal bleeding, rectal pain, vomiting, others Genitourinary: denies: abnormal vagina bleeding, burning, dyspareunia, dysuria, flank pain, frequency, hematuria, incontinence, pain, , vagina discharge, urgency, others Neurological: denies: dizziness, fainting, headache, left sided numbness, left sided weakness, numbness, paresthesia, pre-existing deficit, right sided numbness, right sided weakness, seizure, speech problems, tingling, tremors, weakness, others Musculoskeletal: denies: back pain, gout, joint pain, joint swelling, muscle pain, muscle stiffness, neck pain, others Integumetry: denies: bruises, change in color, change in hair/nails, dryness, laceration, lesions, lumps, rash, wounds, others Allergic/Immunocompromised: denies: Difficulty Healing, Frequent Infections, Hives, Itching, others Hematologic/Lymphatic: denies: anemia, blood clots, easy bleeding, easy bruising, swollen glands, others Endocrine: denies: excessive hunger, excessive sweating, excessive thirst, excessive urination, flushing, intolerance to cold, intolerance to heat, unexpla ined weight gain, unexplained weight loss, others Psychiatric: denies: anxiety, bipolar disorder, depression, hopeless, panic disorder, schizophrenia, sleepless, suicidal, others All Other Systems: Reviewed and Negative Physical Exam General Appearance: Moderate Distress HEENT: Normal ENT Inspection, Pharynx Normal, TMs Normal Neck: Full Range of Motion, Non-Tender, Normal, Normal Inspection Respiratory: Chest Non-Tender, Lungs Clear, No Accessory Muscle Use, No Respiratory Distress, Normal Breath Sounds Cardiovascular: No Edema, No JVD, No Murmur, No Gallop, Normal Peripheral Pulses, Regular Rate/Rhythm Breast Exam: Deferred Gastrointestinal: LLQ, No Organomegaly, No Pulsatile Mass, Normal Bowel Sounds, RLQ, Soft, Tenderness Genitalia: Deferred Pelvic: Deferred Rectal: Deferred Extremities: No calf tenderness, Normal capillary refill, Normal inspection, Normal range of motion, Non-tender, No pedal edema Musculoskeletal : Apperance: Normal Neurologic: Alert, deli manager II-XII nml as Tested, Motor Weakness, Normal Affect, Normal Mood, No Sensory Deficits Cerebellar Function: Normal Reflexes: Normal Skin: Dry, Pallor, Warm Lymphatic: No Adenopathy Was a procedure done? Was a procedure done?: No GI differential Dx Differential Diagnosis: Gastritis/PUD, Gastroenteritis, Inflammatory BD, Pancreatitis, UTI, Electrolyte Imbalance, Food Poisoning X-Ray, Labs, Meds, VS Vital Signs Date Time Temp Pulse Resp B/P (MAP) Pulse Ox O2 Delivery O2 Flow Rate FiO2 08/15/25 17:29 99.2 93 18 204/107 96 99.2 Lab Test 08/15/25 18:14 Range/Units White Blood Count 5.7 4.4-10.8 10^3/uL Red Blood Count 3.15 L 4.0-5.20 10^6/uL Hemoglobin 10.0 L 12.2-16.2 g/dL Hematocrit 30.0 L 36.0-46.0 % Mean Corpuscular Volume 95.4 80.0-100.0 fL Mean Corpuscular Hemoglobin 31.8 28.0-32.0 pg Mean Corpuscular Hemoglobin Concent 33.3 32.0-36.0 g/dL Red Cell Distribution Width 13.2 11.8-14.3 % Platelet Count 289 140-450 10^3/uL Mean Platelet Volume 7.9 6.9-10.8 fL Neutrophils (%) (Auto) 44.3 37.0-80.0 % Lymphocytes (%) (Auto) 40.5 10.0-50.0 % Monocytes (%) (Auto) 11.7 0.0-12.0 % Eosinophils (%) (Auto) 2.8 0.0-7.0 % Basophils (%) (Auto) 0.7 0.0-2.0 % Neutrophils # (Auto) 2.5 1.6-8.6 10 ^3/uL Lymphocytes # (Auto) 2.3 0.4-5.4 10 ^3/uL Monocytes # (Auto) 0.7 0-1.3 10 ^3/uL Eosinophils # (Auto) 0.2 0-0.8 10 ^3/uL Basophils # (Auto) 0 0-0.2 10 ^3/uL Nucleated Red Blood Cells 0.1 % Sodium Level 141 136-145 mmol/L Potassium Level 3.6 3.5-5.1 mmol/L Chloride Level 106 98-107 mmol/L Carbon Dioxide Level 26 20-31 mmol/L Anion Gap 9 5-15 Blood Urea Nitrogen 7 L 9-23 mg/dL Creatinine 0.66 0.550-1.02 mg/dL Glomerular Filtration Rate Calc 85 >90 mL/min BUN/Creatinine Ratio 10.6 10.0-20.0 Serum Glucose 97 74-106 mg/dL Calcium Level 8.9 8.7-10.4 mg/dL Total Bilirubin 0.5 0.2-1.0 mg/dL Aspartate Amino Transferase (AST) 26 13-40 U/L Alanine Aminotransferase (ALT) 10 7-40 U/L Alkaline Phosphatase 58 46-116 U/L Total Protein 6.3 5.7-8.2 g/dL Albumin 3.6 3.2-4.8 g/dL Lipase 30 12-53 U/L Current Medications Medications (Trade) Dose Ordered Sig/Leidy Route Start Time Stop Time Status Last Admin Sodium Chloride 500 ml @ 500 mls/hr Q1H ONCE IVB 08/15/25 17:45 08/15/25 18:44 DC 08/15/25 18:50 IV Hep-Lock was established The patient was given a normal saline bolus of 500 cc The CBC shows anemia with a hemoglobin of 10 and hematocrit 30 The chemistry panel is within normal limits At this time, the patient will be admitted to the hospitalist The CAT scan of the abdomen and pelvis is pending The patient will be signed out to Dr. Red Images Reviewed?: Images reviewed and evaluated by me Time of 1ST Reevaluation: 21:30 Reevaluation 1ST: Unchanged Patient Education/Counseling: Diagnosis, Treatment, Prognosis Family Education/Counseling: No Family Present SEPSIS Sepsis Screen Physician Orders Urinalysis (08/15/25 17:31) Ct Ab Pel Wo Con-No Oral Or Iv (08/15/25 17:31) Heplock Iv (08/15/25 17:31) Cost Clerk (08/15/25 17:31) Blood Pressure (08/15/25 17:31) Pulse Oximetry (08/15/25 17:31) Vital Signs Date Time Temp Pulse Resp B/P (MAP) Pulse Ox O2 Delivery O2 Flow Rate FiO2 08/15/25 17:29 99.2 93 18 204/107 96 99.2 Laboratory Tests Test 08/15/25 18:14 White Blood Count 5.7 10^3/uL (4.4-10.8) Medications Medications Dose Ordered Sig/Leidy Route Start Time Stop Time Status Last Admin Dose Admin Sodium Chloride 500 ml @ 500 mls/hr Q1H ONCE IVB 08/15/25 17:45 08/15/25 18:44 DC 08/15/25 18:50 Departure 1 Departure Time of Disposition: 21:31 Impression: Primary Impression: Intractable abdominal pain Disposition: 09 ADMITTED INPATIENT Admit to: Med Surg Condition: Fair Critical Care Note Critical Care Time?: No Stability Stability form required: Yes Unstable for transfer: ED Physician Assesment (Clinical assesment) Heart Score Heart Score: Heart Score Response (Comments) Value History N/A 0 EKG N/A 0 Age N/A 0 Risk Factors N/A 0 Troponin N/A 0 Total 0 I personally scribed for XANDER SANTIAGO MD ([email or web address]) on 08/15/25 at 17:35. Electronically submitted by Mariusz Krishnan ([email or web address]). XANDER SANTIAGO MD Aug 15, 2025 17:35
[2025-08-15 18:00] VITALS: PULSE 86; RESP 15; O2SAT 97
[2025-08-15 18:37] LABS: Hematocrit 30.0 % (36.0-46.0); Hemoglobin 10.0 g/dL (12.2-16.2); Mean Corpuscular Hemoglobin 31.8 pg (28.0-32.0); Mean Corpuscular Volume 95.4 fL (80.0-100.0); Nucleated Red Blood Cells % 0.1 %
[2025-08-15 18:43] LABS: Alanine Aminotransferase 10 U/L (7-40); Albumin 3.6 g/dL (3.2-4.8); Alkaline Phosphatase 58 U/L (46-116); Anion Gap 9 (5-15); BUN/Creatinine Ratio 10.6 (10.0-20.0); Calcium 8.9 mg/dL (8.7-10.4); Carbon Dioxide 26 mmol/L (20-31); Chloride 106 mmol/L (98-107); Glucose 97 mg/dL (74-106); Lipase 30 U/L (12-53); Potassium 3.6 mmol/L (3.5-5.1); Sodium 141 mmol/L (136-145); Total Protein 6.3 g/dL (5.7-8.2)
[2025-08-15 18:44] LABS: Bilirubin, Total 0.5 mg/dL (0.2-1.0)
[2025-08-15 18:48] LABS: Blood Urea Nitrogen 7 mg/dL (9-23)
[2025-08-15] MEDS: SODIUM CHLORIDE 0.9% 500 ML IVB ONE (18:50)
--- NOTE | 2025-08-15 22:10 | DVH ---
EXAM: CT CT AB PEL WO CON-NO ORAL OR IV INDICATION: pain TECHNIQUE: Volumetric multidetector CT images of the abdomen and pelvis were obtained without contras t. All CT scans at this facility use dose modulation, iterative reconstruction, and/or weight based d osing when appropriate to reduce radiation dose to as low as reasonably achievable. COMPARISON: CT CT AB PEL WO CON-NO ORAL OR IV on DOS: 06/28/25 FINDINGS: [LOWER CHEST]: Atelectasis in bilateral lung bases. The cardiac size is normal without pericardial ef fusion. [LIVER]: Normal hepatic size without suspicious focal lesion. [GALLBLADDER AND BILIARY TREE]: Surgically absent. [SPLEEN]: Unremarkable. [PANCREAS]: Fatty atrophy, which may be seen in the setting of underlying metabolic derangement such as diabetes. [ADRENAL GLANDS]: Unremarkable [KIDNEYS]: No hydronephrosis. No nephroureterolithiasis. [BLADDER]: Normal [REPRODUCTIVE ORGANS]: Coarse calcification proximal aspect of the vaginal canal to inferior aspect o f the bladder [BOWEL/MESENTERY]: Stomach is normal. No CT evidence of bowel obstruction.mild stool burden. Normal appendix minimal sigmoid diverticulosis. [ASCITES]: Absent [LYMPHADENOPATHY]: No pathologically enlarged lymph nodes by CT size criteria [VASCULATURE]: No aneurysmal dilatation. [ABDOMINAL WALL]: Unremarkable. [MUSCULOSKELETAL]: No acute fracture or aggressive focal osseous lesion. Trace anterolisthesis L4 ove r L5. Disc uncovering at L4-5 with subsequent at least [id number] spinal canal narrowing at thi s level. IMPRESSION: 1. No CT evidence of an acute abdominal/pelvic process. 2. Mild stool burden. 3. Minimal sigmoid diverticulosis.
[2025-08-16] VITALS (7 sets, daily range): BP systolic 96–133; BP diastolic 63–75; PULSE 82–94; RESP 16–18; TEMP 97.5–98.6; O2SAT 94–97
[2025-08-16] MEDS ORDERED: ONDANSETRON HCL 4 MG/2 ML VIAL IV PRN (01:15)
[2025-08-16] MEDS ORDERED: HYDROcodone-ACET 5/325MG TAB PO PRN (01:15)
--- NOTE | 2025-08-16 04:47 | DVHHP2 ---
History of Present Illness Reason for Visit: Abdominal pain History of Present Illness 89-year-old female presents for evaluation of abdominal pain. The patient reports a three-month history of intermittent episodes of abdominal pain. She states the pain is localized to her left lower quadrant and is worse with palpation. Reports occasional episodes of nausea with vomiting. Currently denies any symptoms. No fever or chills. No diarrhea. Past Medical History Dyslipidemia, hypertension, thyroid Past Surgical History , left femur surgery Family History Noncontributory Smoke: No ALCOHOL: none Drugs: None Lives: with Family Review of Systems Review of Systems Review of systems are currently negative otherwise addressed in HPI. Allergies: Coded Allergies: Codeine (Verified Allergy, Unknown, Itchy, 07/31/24) Red Dye #40 (Allura Red) (Verified Allergy, Unknown, 06/27/25) Uncoded Allergies: CONTRAST DYE (Allergy, Unknown, Rash, 07/31/24) Medications Current Medications Medications Dose Ordered Sig/Leidy Route Start Time Stop Time Status Last Admin Dose Admin Atorvastatin Calcium 20 mg HS PO 08/16/25 22:00 Carvedilol 3.125 mg Q12HR PO 08/16/25 10:00 Gabapentin 300 mg DAILY PO 08/16/25 10:00 Levothyroxine Sodium 88 mcg QAM@0600 PO 08/16/25 06:00 Losartan Potassium 50 mg DAILY PO 08/16/25 10:00 Pantoprazole Sodium 40 mg DAILY@0600 PO 08/16/25 06:00 Acetaminophen/ Hydrocodone Bitart 1 tab Q4HP PRN PO 08/16/25 01:15 Ondansetron HCl 4 mg Q4HP PRN IV 08/16/25 01:15 Acetaminophen 650 mg Q6HP PRN PO 08/16/25 01:15 Exam Vital Signs Vital Signs Date Time Temp Pulse Resp B/P (MAP) Pulse Ox O2 Delivery O2 Flow Rate FiO2 08/16/25 03:23 97.9 89 16 116/63 (80) 95 97.9 08/15/25 18:00 Room Air* 0 21 Exam Gen: 89-year-old female in no apparent distress Skin: Warm, dry, normal color and texture, no rash. HEENT: Normocephalic atraumatic, mucous membranes moist and pink. Neck: Cervical and supraclavicular nodes normal without enlargement, trachea is midline, thyroid gland is normal without masses. Pulmonary: Clear to auscultation and percussion bilaterally. Cardiac: Regular rate and rhythm. No murmur Abdomen: Soft, nontender, nondistended, bowel sounds present all 4 quadrants, no guarding, no rigidity, no organomegaly. Extremities: No cyanosis, clubbing, no edema Neuro: Cranial nerves II through XII grossly intact, normal affect and speech, no focal motor deficits. Labs/Xrays ORDERING PHYSICIAN: XANDER SANTIAGO MD PROCEDURE(s): ABPL - CT AB PEL WO CON-NO ORAL OR IV REASON: pain ORDER NUMBER(s): [id number], ACCESSION NUMBER(s): [id number] EXAM: CT CT AB PEL WO CON-NO ORAL OR IV INDICATION: pain TECHNIQUE: Volumetric multidetector CT images of the abdomen and pelvis were obtained without contrast. All CT scans at this facility use dose modulation, iterative reconstruction, and/or weight based dosing when appropriate to reduce radiation dose to as low as reasonably achievable. COMPARISON: CT CT AB PEL WO CON-NO ORAL OR IV on DOS: 06/28/25 FINDINGS: [LOWER CHEST]: Atelectasis in bilateral lung bases. The cardiac size is normal without pericardial effusion. [LIVER]: Normal hepatic size without suspicious focal lesion. [GALLBLADDER AND BILIARY TREE]: Surgically absent. [SPLEEN]: Unremarkable. [PANCREAS]: Fatty atrophy, which may be seen in the setting of underlying metabolic derangement such as diabetes. [ADRENAL GLANDS]: Unremarkable [KIDNEYS]: No hydronephrosis. No nephroureterolithiasis. [BLADDER]: Normal [REPRODUCTIVE ORGANS]: Coarse calcification proximal aspect of the vaginal canal to inferior aspect of the bladder [BOWEL/MESENTERY]: Stomach is normal. No CT evidence of bowel obstruction.mild stool burden. Normal appendix minimal sigmoid diverticulosis. [ASCITES]: Absent [LYMPHADENOPATHY]: No pathologically enlarged lymph nodes by CT size criteria [VASCULATURE]: No aneurysmal dilatation. [ABDOMINAL WALL]: Unremarkable. [MUSCULOSKELETAL]: No acute fracture or aggressive focal osseous lesion. Trace anterolisthesis L4 over L5. Disc uncovering at L4-5 with subsequent at least m [id number] spinal canal narrowing at this level. IMPRESSION: 1. No CT evidence of an acute abdominal/pelvic process. 2. Mild stool burden. 3. Minimal sigmoid diverticulosis. ATED BY: MEGA BECKER MD Labs Test 08/15/25 18:14 Range/Units White Blood Count 5.7 4.4-10.8 10^3/uL Red Blood Count 3.15 L 4.0-5.20 10^6/uL Hemoglobin 10.0 L 12.2-16.2 g/dL Hematocrit 30.0 L 36.0-46.0 % Mean Corpuscular Volume 95.4 80.0-100.0 fL Mean Corpuscular Hemoglobin 31.8 28.0-32.0 pg Mean Corpuscular Hemoglobin Concent 33.3 32.0-36.0 g/dL Red Cell Distribution Width 13.2 11.8-14.3 % Platelet Count 289 140-450 10^3/uL Mean Platelet Volume 7.9 6.9-10.8 fL Neutrophils (%) (Auto) 44.3 37.0-80.0 % Lymphocytes (%) (Auto) 40.5 10.0-50.0 % Monocytes (%) (Auto) 11.7 0.0-12.0 % Eosinophils (%) (Auto) 2.8 0.0-7.0 % Basophils (%) (Auto) 0.7 0.0-2.0 % Neutrophils # (Auto) 2.5 1.6-8.6 10 ^3/uL Lymphocytes # (Auto) 2.3 0.4-5.4 10 ^3/uL Monocytes # (Auto) 0.7 0-1.3 10 ^3/uL Eosinophils # (Auto) 0.2 0-0.8 10 ^3/uL Basophils # (Auto) 0 0-0.2 10 ^3/uL Nucleated Red Blood Cells 0.1 % Sodium Level 141 136-145 mmol/L Potassium Level 3.6 3.5-5.1 mmol/L Chloride Level 106 98-107 mmol/L Carbon Dioxide Level 26 20-31 mmol/L Anion Gap 9 5-15 Blood Urea Nitrogen 7 L 9-23 mg/dL Creatinine 0.66 0.550-1.02 mg/dL Glomerular Filtration Rate Calc 85 >90 mL/min BUN/Creatinine Ratio 10.6 10.0-20.0 Serum Glucose 97 74-106 mg/dL Calcium Level 8.9 8.7-10.4 mg/dL Total Bilirubin 0.5 0.2-1.0 mg/dL Aspartate Amino Transferase (AST) 26 13-40 U/L Alanine Aminotransferase (ALT) 10 7-40 U/L Alkaline Phosphatase 58 46-116 U/L Total Protein 6.3 5.7-8.2 g/dL Albumin 3.6 3.2-4.8 g/dL Lipase 30 12-53 U/L SEPSIS Sepsis Screen Date sepsis recognized/suspect: Aug 15, 2025 Time Sepsis recognized/suspect: 1800 Recent Procedure: No On Antibiotic Therapy: No Respiratory Rate >20: No Heart Rate >90: No Temp<36 C (96.8 F) or >38.3 C: No SBP <90 or MAP <65 mmHG: No New Acute Mental Status Change: No Is the patient on CPAP, BIPAP,: No Physician Orders Admit (08/15/25 23:56) * [facility] [employer] Instructor (08/16/25 01:15) Stool Occult Blood (08/16/25 01:15) Atorvastatin (Lipitor) (08/16/25 22:00) Carvedilol Tablet (Coreg Tablet) (08/16/25 10:00) Gabapentin Capsule (Neurontin Capsule) (08/16/25 10:00) Levothyroxine Tablet (Synthroid Tablet) (08/16/25 06:00) Losartan Tablet (Cozaar Tablet) (08/16/25 10:00) Pantoprazole Tablet (Protonix Tablet) (08/16/25 06:00) Basic Metabolic Panel (08/16/25 04:00) Hydrocodone-Acet 5/325mg Tab ([place] 5/32 (08/16/25 01:15) Ondansetron Hcl (Zofran) (08/16/25 01:15) Cardiac Diet-2gna,Lofat,Lochol (08/16/25 Breakfast) Condition: Stable (08/16/25 01:15) Acetaminophen Tablet (Tylenol Tablet) (08/16/25 01:15) Bedrest With Bathroom Privileg (08/16/25 01:15) Vital Signs Date Time Temp Pulse Resp B/P (MAP) Pulse Ox O2 Delivery O2 Flow Rate FiO2 08/16/25 03:23 97.9 89 16 116/63 (80) 95 97.9 08/16/25 00:00 97.9 92 17 122/70 (87) 96 97.9 08/15/25 22:00 86 18 130/74 (92) 97 08/15/25 21:00 85 13 111/61 (78) 97 Laboratory Tests Test 08/15/25 18:14 White Blood Count 5.7 10^3/uL (4.4-10.8) Medications Medications Dose Ordered Sig/Leidy Route Start Time Stop Time Status Last Admin Dose Admin Sodium Chloride 500 ml @ 500 mls/hr Q1H ONCE IVB 08/15/25 17:45 08/15/25 18:44 DC 08/15/25 18:50 500 MLS/HR Assessment/Plan Assessment/Plan Assessment Abdominal pain Hypertension Mild anemia Plan Admit the patient to [facility] to the hospitalist GI consult Resume home medications Stool occult blood pending Continue treatment per orders. Plan discussed with: Patient My Orders Orders - JOCELYN PEREIRA Procedure Category Date Status Time Admit ADMIT 08/15/25 Transmitted 23:56 * [facility] [employer] Instructor CONS 08/16/25 Transmitted 01:15 Stool Occult Blood LAB 08/16/25 Logged 01:15 Atorvastatin (Lipitor) PHA 08/16/25 In Process 22:00 Carvedilol Tablet PHA 08/16/25 In Process (Coreg Tablet) 10:00 Gabapentin Capsule PHA 08/16/25 In Process (Neurontin Capsule) 10:00 Levothyroxine Tablet PHA 08/16/25 In Process (Synthroid Tablet) 06:00 Losartan Tablet PHA 08/16/25 In Process (Cozaar Tablet) 10:00 Pantoprazole Tablet PHA 08/16/25 In Process (Protonix Tablet) 06:00 Basic Metabolic Panel LAB 08/16/25 Logged 04:00 Hydrocodone-Acet PHA 08/16/25 In Process 5/325mg Tab ([place] 01:15 Ondansetron Hcl PHA 08/16/25 In Process (Zofran) 01:15 Cardiac DIET 08/16/25 Transmitted Diet-2gna,Lofat,Lochol Breakfast Condition: Stable SUSSY 08/16/25 In Process 01:15 Acetaminophen Tablet PHA 08/16/25 In Process (Tylenol Tablet) 01:15 Bedrest With Bathroom SUSSY 08/16/25 In Process Privileg 01:15 Date of Service: Aug 16, 2025 Billing Provider: JOCELYN PEREIRA Common Visit Codes: [id number] INP/OBS CARE (MOD) JOCELYN PEREIRA Aug 16, 2025 04:47
[2025-08-16] MEDS: ACETAMINOPHEN 325 MG TAB PO PRN (05:09)
[2025-08-16] MEDS: PANTOPRAZOLE 40 MG TAB PO SCH (05:09)
[2025-08-16] MEDS: LEVOTHYROXINE SODIUM 88 MCG TAB PO SCH (05:09)
[2025-08-16] MEDS: CARVEDILOL 3.125 MG TAB PO SCH (09:58)
[2025-08-16] MEDS: GABAPENTIN 300 MG CAP PO SCH (09:58)
[2025-08-16] MEDS: LOSARTAN POTASSIUM 50 MG TAB PO SCH (10:00)
[2025-08-16 10:18] LABS: Urine Protein, UAD Negative (Negative)
[2025-08-16 10:59] LABS: Anion Gap 10 (5-15); Carbon Dioxide 22 mmol/L (20-31); Sodium 139 mmol/L (136-145)
[2025-08-16 11:00] LABS: Calcium 8.7 mg/dL (8.7-10.4)
[2025-08-16 11:05] LABS: BUN/Creatinine Ratio 8.8 (10.0-20.0)
[2025-08-16 11:29] LABS: Blood Urea Nitrogen 6 mg/dL (9-23); Chloride 107 mmol/L (98-107); Glucose 116 mg/dL (74-106); Potassium 3.3 mmol/L (3.5-5.1)
[2025-08-16] MEDS: SODIUM CHLORIDE 0.9% 1,000 ML IV ONE (13:10)
[2025-08-16] MEDS: POLYETHYLENE GLYCOL 17 GM PWDR PO ONE (13:41)
--- NOTE | 2025-08-16 14:56 | DVHPN2 ---
Subjective Patient states that her abdominal pain has improved her left lower quadrant. Reviewed: Care Plan, H&P, Labs, Medications, Previous Orders Changes from previous H/P or p: No Changes General: Per HPI Objective Vitals Vital Signs Date Time Temp Pulse Resp B/P (MAP) Pulse Ox O2 Delivery O2 Flow Rate FiO2 08/16/25 10:00 121/70 08/16/25 09:58 90 08/16/25 09:00 98.0 16 95 98.0 08/15/25 18:00 Room Air* 0 21 Intake/Output Intake and Output 08/16/25 07:00 Intake Total 700 ml Balance 700 ml Intake Oral 200 ml IV Total 500 ml General Appearance: Alert, Oriented X3, Cooperative, mild distress HEENT: Atraumatic, PERRLA Lungs: Clear to auscultation, Normal air movement Cardiovascular: Normal S1, Normal S2 Abdomen: Normal bowel sounds, Soft, Other (Pain with light palpation of the left lower quadrant) Rectal: Deferred, Normal inspection Musculoskeletal: Normal sensory function, Normal motor function Extremities: No clubbing, No cyanosis Neuro: Normal gait, Normal speech Skin: Dry, Intact Psych/Mental Status: Mental status NL, Mood NL Medications Current Medications Medications Dose Ordered Sig/Leidy Route Start Time Stop Time Status Last Admin Dose Admin Atorvastatin Calcium 20 mg HS PO 08/16/25 22:00 Carvedilol 3.125 mg Q12HR PO 08/16/25 10:00 08/16/25 09:58 3.125 MG Gabapentin 300 mg DAILY PO 08/16/25 10:00 08/16/25 09:58 300 MG Levothyroxine Sodium 88 mcg QAM@0600 PO 08/16/25 06:00 08/16/25 05:09 88 MCG Losartan Potassium 50 mg DAILY PO 08/16/25 10:00 08/16/25 10:00 50 MG Pantoprazole Sodium 40 mg DAILY@0600 PO 08/16/25 06:00 08/16/25 05:09 40 MG Acetaminophen/ Hydrocodone Bitart 1 tab Q4HP PRN PO 08/16/25 01:15 Ondansetron HCl 4 mg Q4HP PRN IV 08/16/25 01:15 Acetaminophen 650 mg Q6HP PRN PO 08/16/25 01:15 08/16/25 05:09 650 MG Polyethylene Glycol 17 gm DAILY PO 08/17/25 10:00 Sennosides 8.6 mg HS PO 08/16/25 22:00 Laboratory Results Laboratory Tests 08/15/25 18:14 Chemistry Test 08/15/25 18:14 08/16/25 09:02 08/16/25 14:30 Albumin 3.6 g/dL (3.2-4.8) Pending Calcium Level 8.9 mg/dL (8.7-10.4) 8.7 mg/dL (8.7-10.4) Pending Total Protein 6.3 g/dL (5.7-8.2) Pending Lipid panel Test 08/15/25 18:14 Lipase 30 U/L (12-53) LFT Test 08/15/25 18:14 08/16/25 14:30 Alanine Aminotransferase (ALT) 10 U/L (7-40) Pending Alkaline Phosphatase 58 U/L (46-116) Pending Aspartate Amino Transferase (AST) 26 U/L (13-40) Pending Total Bilirubin 0.5 mg/dL (0.2-1.0) Pending HgA1c, TSH Test 08/16/25 09:02 Thyroid Stimulating Hormone (TSH) 0.05 uIU/mL (0.55-4.78) L Urinalysis Test 08/15/25 09:28 Urine Color Light-yellow (Yellow) Urine Clarity Clear (Clear) Urine pH 7.5 (5.0-9.0) Urine Specific [place] 1.011 (1.001-1.035) Urine Protein Negative (Negative) Urine Ketones Trace (Negative) Urine Blood Negative /uL (Negative) Urine Nitrite Negative (Negative) Urine Bilirubin Negative (Negative) Urine Urobilinogen Normal mg/dL (Negative) Urine Leukocyte Esterase Negative /uL (Negative) Urine RBC 1 /hpf (0 - 4) Urine Microscopic WBC 1 /HPF (0-5) Urine Squamous Epithelial Cells Few /hpf (<5) Urine Bacteria None seen /hpf (None Seen) Urine Glucose Normal mg/dL (Normal) Labs and/or images reviewed: Labs reviewed by me, Image(s) reviewed by me Assessment/Plan Assessment/Plan Impression: -probable colitis -primary hypertension -dyslipidemia -hypothyroidism Plan: -GI consultation -clear liquid diet -continue antibiotic therapy -gentle IV hydration -check CEA -repeat labs in a.m. Total time spent with patient discussing and formulating plan of care: 35 minutes. This medical document was created using an electronic medical record system with e27 dictation system. Although this document has been carefully reviewed, there may still be some phonetic and typographical errors. These areas are purely typographical due to imperfections of the software programs, and do not reflect any compromise in the patient's medical care. Plan discussed with: Patient, Other (RN) My Orders Orders - CATE NEWTON NP Procedure Category Date Status Time * [facility] Ammonia Nitrate Operator CONS 08/16/25 Transmitted 14:11 Comprehensive LAB 08/16/25 In Process Metabolic Panel 14:12 Carcinoembryonic LAB 08/17/25 Verified Antigen 04:00 Date of Service: Aug 16, 2025 Billing Provider: CATE NEWTON NP Common Visit Codes: [id number] INP/OBS CARE(HIGH) CATE NEWTON NP Aug 16, 2025 14:56
[2025-08-16 15:22] LABS: Alkaline Phosphatase 56 U/L (46-116); Anion Gap 8 (5-15); BUN/Creatinine Ratio 11.9 (10.0-20.0); Carbon Dioxide 25 mmol/L (20-31); Chloride 105 mmol/L (98-107); Glucose 96 mg/dL (74-106); Sodium 138 mmol/L (136-145)
[2025-08-16 15:23] LABS: Alanine Aminotransferase 9 U/L (7-40); Albumin 3.0 g/dL (3.2-4.8); Bilirubin, Total 0.7 mg/dL (0.2-1.0); Blood Urea Nitrogen 8 mg/dL (9-23); Calcium 8.2 mg/dL (8.7-10.4); Potassium 3.2 mmol/L (3.5-5.1); Total Protein 5.4 g/dL (5.7-8.2)
--- NOTE | 2025-08-16 16:55 | DVHCONRES ---
Date Seen: Aug 16, 2025 Resident Creating Document: JHAJJ,SARPUNEET RESIDENT Referring Physician TRISTEN Starr Reason for Consultation Abd Pain History of Present Illness Patient is a 89 y/o female with PMHx of dyslipidemia, hypertension, hypothyroidism came to the hospital with c/c of abdominal pain. The patient reports a three-month history of intermittent episodes of abdominal pain. She states the pain is localized to her left lower quadrant and is worse with palpation. Reports occasional episodes of nausea with vomiting. Currently denies any symptoms. No fever or chills. No diarrhea. Past Medical History as per HPI Past Surgical History C- section, Left femoral Sx Family History: Cardiovascular disease G8 MOTHER, G8 FATHER, Diabetes mellitus G8 MOTHER, G8 FATHER, FH: cancer G8 FATHER, Family History no significant family hx Social History denies smoking, alcohol. drug use Allergies: Coded Allergies: Codeine (Verified Allergy, Unknown, Itchy, 07/31/24) Red Dye #40 (Allura Red) (Verified Allergy, Unknown, 06/27/25) Uncoded Allergies: CONTRAST DYE (Allergy, Unknown, Rash, 07/31/24) Home Meds Active Scripts Gabapentin (Once-Daily) (Gabapentin) 300 Mg Tab, 300 MG PO Q6HP PRN, #60 TAB Prov:LEENA OVIEOD MD 02/14/25 Atorvastatin Calcium (ATORVASTATIN CALCIUM) 20 Mg Tab, 20 MG PO HS for 30 Days, #30 TAB Prov:NIK PASCUAL MD 01/31/23 Reported Medications Mirtazapine (Mirtazapine Oral Disintegrating Tablet) 15 Mg Tab, 1 TAB PO 06/28/25 Losartan Potassium (Losartan Potassium) 50 Mg Tab, 1 TAB PO DAILY 06/09/24 Gabapentin (Gabapentin) 100 Mg Cap, CAP PO 06/09/24 Carvedilol (Coreg) 3.125 Mg Tab, 1 TAB PO BID, #180 TAB 1 Refill 01/29/23 Losartan Potassium (Losartan Potassium) 100 Mg Tab, 100 MG PO DAILY for 30 Days, MG 01/29/23 Gabapentin (Gabapentin) 400 Mg Cap, 1 CAP PO DAILY 01/28/23 Sertraline Hcl (Sertraline Hcl) 50 Mg Tab, 1 TAB PO DAILY 01/28/23 Pantoprazole Sodium Sesquihydr (Pantoprazole Sodium) 40 Mg Tab, 1 TAB PO DAILY 01/28/23 Levothyroxine Sodium (Levothyroxine Sodium) 88 Mcg Tab, 1 TAB PO DAILY 01/28/23 Oxybutynin Chloride (Oxybutynin Chloride) 5 Mg Tab, 1 TAB PO DAILY 01/28/23 Current Medications Current Medications Medications (Trade) Dose Ordered Sig/Leidy Route PRN Reason Start Time Stop Time Status Last Admin Atorvastatin Calcium (Lipitor) 20 mg HS PO 08/16/25 22:00 Carvedilol (Coreg Tablet) 3.125 mg Q12HR PO 08/16/25 10:00 08/16/25 09:58 Gabapentin (Neurontin Capsule) 300 mg DAILY PO 08/16/25 10:00 08/16/25 09:58 Levothyroxine Sodium (Synthroid Tablet) 88 mcg QAM@0600 PO 08/16/25 06:00 08/16/25 05:09 Losartan Potassium (Cozaar Tablet) 50 mg DAILY PO 08/16/25 10:00 08/16/25 10:00 Pantoprazole Sodium (Protonix Tablet) 40 mg DAILY@0600 PO 08/16/25 06:00 08/16/25 05:09 Acetaminophen/ Hydrocodone Bitart ([place] 5/325MG Tab) 1 tab Q4HP PRN PO MODERATE PAIN (4-6 PAIN SCALE) 08/16/25 01:15 Ondansetron HCl (Zofran) 4 mg Q4HP PRN IV NAUSEA / VOMITING 08/16/25 01:15 Acetaminophen (Tylenol Tablet) 650 mg Q6HP PRN PO PAIN SCALE 1-3 OR TEMP>100.4 08/16/25 01:15 08/16/25 05:09 Polyethylene Glycol (Miralax 17GM Powder) 17 gm DAILY PO 08/17/25 10:00 Sennosides (Senokot Tablet) 8.6 mg HS PO 08/16/25 22:00 Review of Systems Patient is seen and examined at bedside reports mild LLQ pain which has improved since yesterday Vital Signs Vital Signs Date Time Temp Pulse Resp B/P (MAP) Pulse Ox O2 Delivery O2 Flow Rate FiO2 08/16/25 13:00 97.5 87 18 118/70 (86) 96 97.5 08/15/25 18:00 Room Air* 0 21 Physical Exam Gen - no pallor, no scleral icterus Skin - Patients skin is warm and dry. HEENT - normocephalic, atraumatic, dry mucous membranes. Neck - supple, no lymphadenopathy Pulmonary - B/L equal air entry with vesicular breath sounds cardiovascular - regular S1,S2 heard GI - soft abdomen with mild LLQ tenderness. Bowel sounds normoactive. Neurological - Patient is alert and oriented x4. No motor or sensory weakness Labs/Diagnostic Data Labs Test 08/16/25 14:30 08/16/25 09:02 08/15/25 18:14 08/15/25 09:28 Range/Units Sodium Level 138 136-145 mmol/L Potassium Level 3.2 L 3.5-5.1 mmol/L Chloride Level 105 98-107 mmol/L Carbon Dioxide Level 25 20-31 mmol/L Anion Gap 8 5-15 Blood Urea Nitrogen 8 L 9-23 mg/dL Creatinine 0.67 0.550-1.02 mg/dL Glomerular Filtration Rate Calc 85 >90 mL/min BUN/Creatinine Ratio 11.9 10.0-20.0 Serum Glucose 96 74-106 mg/dL Calcium Level 8.2 L 8.7-10.4 mg/dL Total Bilirubin 0.7 0.2-1.0 mg/dL Aspartate Amino Transferase (AST) 28 13-40 U/L Alanine Aminotransferase (ALT) 9 7-40 U/L Alkaline Phosphatase 56 46-116 U/L Total Protein 5.4 L 5.7-8.2 g/dL Albumin 3.0 L 3.2-4.8 g/dL Thyroid Stimulating Hormone (TSH) 0.05 L 0.55-4.78 uIU/mL White Blood Count 5.7 4.4-10.8 10^3/uL Red Blood Count 3.15 L 4.0-5.20 10^6/uL Hemoglobin 10.0 L 12.2-16.2 g/dL Hematocrit 30.0 L 36.0-46.0 % Mean Corpuscular Volume 95.4 80.0-100.0 fL Mean Corpuscular Hemoglobin 31.8 28.0-32.0 pg Mean Corpuscular Hemoglobin Concent 33.3 32.0-36.0 g/dL Red Cell Distribution Width 13.2 11.8-14.3 % Platelet Count 289 140-450 10^3/uL Mean Platelet Volume 7.9 6.9-10.8 fL Neutrophils (%) (Auto) 44.3 37.0-80.0 % Lymphocytes (%) (Auto) 40.5 10.0-50.0 % Monocytes (%) (Auto) 11.7 0.0-12.0 % Eosinophils (%) (Auto) 2.8 0.0-7.0 % Basophils (%) (Auto) 0.7 0.0-2.0 % Neutrophils # (Auto) 2.5 1.6-8.6 10 ^3/uL Lymphocytes # (Auto) 2.3 0.4-5.4 10 ^3/uL Monocytes # (Auto) 0.7 0-1.3 10 ^3/uL Eosinophils # (Auto) 0.2 0-0.8 10 ^3/uL Basophils # (Auto) 0 0-0.2 10 ^3/uL Nucleated Red Blood Cells 0.1 % Lipase 30 12-53 U/L Urine Color Light-yellow Yellow Urine Clarity Clear Clear Urine pH 7.5 5.0-9.0 Urine Specific [place] 1.011 1.001-1.035 Urine Protein Negative Negative Urine Ketones Trace Negative Urine Blood Negative Negative /uL Urine Nitrite Negative Negative Urine Bilirubin Negative Negative Urine Urobilinogen Normal Negative mg/dL Urine Leukocyte Esterase Negative Negative /uL Urine RBC 1 0 - 4 /hpf Urine Microscopic WBC 1 0-5 /HPF Urine Squamous Epithelial Cells Few <5 /hpf Urine Bacteria None seen None Seen /hpf Urine Glucose Normal Normal mg/dL Assessment Assessment Sigmoid diverticulosis with possible diverticulitis Constipation Plan - IV antibiotics - gentle IV fluids - stool softeners - on clear liquid diet, advance to full liquid for the breakfast - patient may benefit from colonoscopy outpatient if patient has recurrent symptomatic diverticulitis Plan discussed with Dr. Tarango Plan discussed with: Patient, Other (LUKE Mcqueen) LUIZ PAYNE RESIDENT Aug 16, 2025 16:55
[2025-08-16] MEDS: SENNA 8.6 MG TAB PO SCH (21:49)
[2025-08-16] MEDS: ATORVASTATIN 20 MG TAB PO SCH (21:49)
[2025-08-17] VITALS (7 sets, daily range): BP systolic 111–122; BP diastolic 67–87; PULSE 85–98; RESP 16–17; TEMP 97.4–98.6; O2SAT 96–97
[2025-08-17] MEDS: POLYETHYLENE GLYCOL 17 GM PWDR PO SCH (09:12)
--- NOTE | 2025-08-17 13:03 | DVHPN2 ---
Subjective Patient states that her abdominal pain has improved her left lower quadrant. Reviewed: Care Plan, H&P, Labs, Medications, Previous Orders Changes from previous H/P or p: No Changes General: Per HPI Objective Vitals Vital Signs Date Time Temp Pulse Resp B/P (MAP) Pulse Ox O2 Delivery O2 Flow Rate FiO2 08/17/25 09:14 119/80 08/17/25 09:14 89 08/17/25 08:39 97.7 16 97 97.7 08/17/25 08:21 Room Air* 0 21 Intake/Output Intake and Output 08/17/25 07:00 Intake Total 505 ml Balance 505 ml Intake Oral 505 ml # Voids 4 General Appearance: Alert, Oriented X3, Cooperative, mild distress HEENT: Atraumatic, PERRLA Lungs: Clear to auscultation, Normal air movement Cardiovascular: Normal S1, Normal S2 Abdomen: Normal bowel sounds, Soft, Other (Pain with light palpation of the left lower quadrant) Rectal: Deferred, Normal inspection Musculoskeletal: Normal sensory function, Normal motor function Extremities: No clubbing, No cyanosis Neuro: Normal gait, Normal speech Skin: Dry, Intact Psych/Mental Status: Mental status NL, Mood NL Medications Current Medications Medications Dose Ordered Sig/Leidy Route Start Time Stop Time Status Last Admin Dose Admin Atorvastatin Calcium 20 mg HS PO 08/16/25 22:00 08/16/25 21:49 20 MG Carvedilol 3.125 mg Q12HR PO 08/16/25 10:00 08/17/25 09:14 3.125 MG Gabapentin 300 mg DAILY PO 08/16/25 10:00 08/17/25 09:13 300 MG Levothyroxine Sodium 88 mcg QAM@0600 PO 08/16/25 06:00 08/17/25 05:43 88 MCG Losartan Potassium 50 mg DAILY PO 08/16/25 10:00 08/17/25 09:14 50 MG Pantoprazole Sodium 40 mg DAILY@0600 PO 08/16/25 06:00 08/17/25 05:43 40 MG Acetaminophen/ Hydrocodone Bitart 1 tab Q4HP PRN PO 08/16/25 01:15 Ondansetron HCl 4 mg Q4HP PRN IV 08/16/25 01:15 Acetaminophen 650 mg Q6HP PRN PO 08/16/25 01:15 08/16/25 21:50 650 MG Polyethylene Glycol 17 gm DAILY PO 08/17/25 10:00 08/17/25 09:12 17 GM Sennosides 8.6 mg HS PO 08/16/25 22:00 08/16/25 21:49 8.6 MG Laboratory Results Laboratory Tests 08/15/25 18:14 08/16/25 14:30 Chemistry Test 08/16/25 14:30 Albumin 3.0 g/dL (3.2-4.8) L Calcium Level 8.2 mg/dL (8.7-10.4) L Total Protein 5.4 g/dL (5.7-8.2) L LFT Test 08/16/25 14:30 Alanine Aminotransferase (ALT) 9 U/L (7-40) Alkaline Phosphatase 56 U/L (46-116) Aspartate Amino Transferase (AST) 28 U/L (13-40) Total Bilirubin 0.7 mg/dL (0.2-1.0) Urinalysis Test 08/15/25 09:28 Urine Color Light-yellow (Yellow) Urine Clarity Clear (Clear) Urine pH 7.5 (5.0-9.0) Urine Specific [place] 1.011 (1.001-1.035) Urine Protein Negative (Negative) Urine Ketones Trace (Negative) Urine Blood Negative /uL (Negative) Urine Nitrite Negative (Negative) Urine Bilirubin Negative (Negative) Urine Urobilinogen Normal mg/dL (Negative) Urine Leukocyte Esterase Negative /uL (Negative) Urine RBC 1 /hpf (0 - 4) Urine Microscopic WBC 1 /HPF (0-5) Urine Squamous Epithelial Cells Few /hpf (<5) Urine Bacteria None seen /hpf (None Seen) Urine Glucose Normal mg/dL (Normal) Labs and/or images reviewed: Labs reviewed by me, Image(s) reviewed by me Assessment/Plan Assessment/Plan Impression: -probable colitis -primary hypertension -dyslipidemia -hypothyroidism Plan: Events: Patient reports that her pain has improved. Reports having bowel movement with out change in consistency. Patient hypokalemic. -GI consultation : Recommendations reviewed -advance diet as tolerated -potassium replacement -continue antibiotic therapy -gentle IV hydration -check CEA -repeat labs in a.m. -reassess for discharge in a.m. Total time spent with patient discussing and formulating plan of care: 35 minutes. This medical document was created using an electronic medical record system with [employer] dictation system. Although this document has been carefully reviewed, there may still be some phonetic and typographical errors. These areas are purely typographical due to imperfections of the software programs, and do not reflect any compromise in the patient's medical care. Plan discussed with: Patient, Other (RN) My Orders Orders - CATE NEWTON NP Procedure Category Date Status Time * Gi [facility] [employer] Professor CONS 08/16/25 Transmitted 14:11 Sod Chl 0.9%/ Kcl PHA 08/17/25 Logged [id number] 13:00 Basic Metabolic Panel LAB 08/18/25 Verified 04:00 Magnesium LAB 08/18/25 Verified 04:00 Date of Service: Aug 17, 2025 Billing Provider: CATE NEWTON NP Common Visit Codes: [id number] INP/OBS CARE(HIGH) CATE NEWTON NP Aug 17, 2025 13:03
[2025-08-17] MEDS: SOD CHL 0.9%/ KCL 40MEQ 1,000 ML IV ONE (15:59)
--- NOTE | 2025-08-17 17:03 | DVHPN2 ---
Progress Note Date Seen: Aug 17, 2025 Resident Creating Document: JHAdrienneJJUDY TempletonDAFNE RESIDENT Medical Necessity Reason Pt with a Central, PICC or Fol: No Subjective Review of Systems Patient reported left lower quadrant abdominal pain is better Reported regular bowel movements without constipation or diarrhea Denied nausea, vomiting Objective vital signs Vital Sign Date Time Temp Pulse Resp B/P (MAP) Pulse Ox O2 Delivery O2 Flow Rate FiO2 08/17/25 16:59 98.6 85 16 115/69 (84) 96 98.6 08/17/25 08:21 Room Air* 0 21 Total Intake and Output 08/16/25 08/16/25 08/17/25 15:00 23:00 07:00 Intake Total 100 ml 405 ml Balance 100 ml 405 ml medications Current Medications Medications Dose Ordered Sig/Leidy Route Start Time Stop Time Status Last Admin Dose Admin Atorvastatin Calcium 20 mg HS PO 08/16/25 22:00 08/16/25 21:49 20 MG Carvedilol 3.125 mg Q12HR PO 08/16/25 10:00 08/17/25 09:14 3.125 MG Gabapentin 300 mg DAILY PO 08/16/25 10:00 08/17/25 09:13 300 MG Levothyroxine Sodium 88 mcg QAM@0600 PO 08/16/25 06:00 08/17/25 05:43 88 MCG Losartan Potassium 50 mg DAILY PO 08/16/25 10:00 08/17/25 09:14 50 MG Pantoprazole Sodium 40 mg DAILY@0600 PO 08/16/25 06:00 08/17/25 05:43 40 MG Acetaminophen/ Hydrocodone Bitart 1 tab Q4HP PRN PO 08/16/25 01:15 Ondansetron HCl 4 mg Q4HP PRN IV 08/16/25 01:15 Acetaminophen 650 mg Q6HP PRN PO 08/16/25 01:15 08/16/25 21:50 650 MG Polyethylene Glycol 17 gm DAILY PO 08/17/25 10:00 08/17/25 09:12 17 GM Sennosides 8.6 mg HS PO 08/16/25 22:00 08/16/25 21:49 8.6 MG Examination Gen - no pallor, no scleral icterus Skin - Patients skin is warm and dry. HEENT - normocephalic, atraumatic, dry mucous membranes. Neck - supple, no lymphadenopathy Pulmonary - B/L equal air entry with vesicular breath sounds cardiovascular - regular S1,S2 heard GI - soft abdomen with improved tenderness in LLQ. Bowel sounds normoactive. Neurological - Patient is alert and oriented x4. No motor or sensory weakness laboratory and microbiology Laboratory Tests 08/16/25 14:30 08/15/25 18:14 Test 08/16/25 14:30 Range/Units Serum Glucose 96 74-106 mg/dL Problem List/Assessment/Plan Problem List/Assessment/Plan Assessment Sigmoid diverticulosis with possible diverticulitis Constipation Plan - IV antibiotics - gentle IV fluids - stool softeners - advance diet to mechanical soft diet - patient may benefit from colonoscopy outpatient if patient has recurrent symptomatic diverticulitis Plan discussed with Dr. Tarango Plan discussed with: Patient, Daughter, Other (LUKE Valverde) LUIZ PAYNE RESIDENT Aug 17, 2025 17:03
[2025-08-18 01:00] VITALS: BP_SYST 101; BP_SYST 99; BP_DIAS 63; BP_DIAS 65; PULSE 68; PULSE 98; RESP 16; RESP 18; TEMP 97.6; TEMP 97.7; O2SAT 95; O2SAT 96
[2025-08-18 05:00] VITALS: BP 120/71; PULSE 96; RESP 16; TEMP 97.6; O2SAT 96
[2025-08-18 07:22] LABS: Potassium 3.7 mmol/L (3.5-5.1); Sodium 144 mmol/L (136-145)
[2025-08-18 07:23] LABS: Anion Gap 9 (5-15); Carbon Dioxide 21 mmol/L (20-31)
[2025-08-18 07:28] LABS: BUN/Creatinine Ratio 7.7 (10.0-20.0); Glucose 95 mg/dL (74-106)
[2025-08-18 07:29] LABS: Magnesium 1.6 mg/dL (1.6-2.6)
[2025-08-18 07:37] LABS: Blood Urea Nitrogen 5 mg/dL (9-23); Calcium 7.4 mg/dL (8.7-10.4); Chloride 114 mmol/L (98-107)
[2025-08-18 08:00] VITALS: BP 129/84; PULSE 100; PULSE 99; RESP 16; RESP 18; TEMP 97.6; O2SAT 96
[2025-08-18 13:00] VITALS: BP 108/65; PULSE 84; RESP 20; TEMP 98.7; O2SAT 96
[2025-08-18] MEDS ORDERED: METR-344 PO (13:15)
--- NOTE | 2025-08-18 13:20 | DVHDS2 ---
Discharge Summary Date of Admission Aug 15, 2025 at 23:56 Date of Discharge: Aug 18, 2025 Admitting Diagnosis Abdominal pain Labs/Diagnostic Data: Laboratory Results Test 08/18/25 06:36 08/17/25 06:46 08/16/25 14:30 08/16/25 09:02 Sodium Level 144 mmol/L (136-145) Potassium Level 3.7 mmol/L (3.5-5.1) Chloride Level 114 mmol/L (98-107) Carbon Dioxide Level 21 mmol/L (20-31) Anion Gap 9 (5-15) Blood Urea Nitrogen 5 mg/dL (9-23) Creatinine 0.65 mg/dL (0.550-1.02) Glomerular Filtration Rate Calc 85 mL/min (>90) BUN/Creatinine Ratio 7.7 (10.0-20.0) Serum Glucose 95 mg/dL (74-106) Calcium Level 7.4 mg/dL (8.7-10.4) Magnesium Level 1.6 mg/dL (1.6-2.6) Carcinoembryonic Antigen < 0.50 ng/mL (<=5.0) Total Bilirubin 0.7 mg/dL (0.2-1.0) Aspartate Amino Transferase (AST) 28 U/L (13-40) Alanine Aminotransferase (ALT) 9 U/L (7-40) Alkaline Phosphatase 56 U/L (46-116) Total Protein 5.4 g/dL (5.7-8.2) Albumin 3.0 g/dL (3.2-4.8) Thyroid Stimulating Hormone (TSH) 0.05 uIU/mL (0.55-4.78) Test 08/16/25 09:00 08/15/25 18:14 08/15/25 09:28 Stool Occult Blood Negative (Negative) Stool Occult Blood Sample #3 (Negative) White Blood Count 5.7 10^3/uL (4.4-10.8) Red Blood Count 3.15 10^6/uL (4.0-5.20) Hemoglobin 10.0 g/dL (12.2-16.2) Hematocrit 30.0 % (36.0-46.0) Mean Corpuscular Volume 95.4 fL (80.0-100.0) Mean Corpuscular Hemoglobin 31.8 pg (28.0-32.0) Mean Corpuscular Hemoglobin Concent 33.3 g/dL (32.0-36.0) Red Cell Distribution Width 13.2 % (11.8-14.3) Platelet Count 289 10^3/uL (140-450) Mean Platelet Volume 7.9 fL (6.9-10.8) Neutrophils (%) (Auto) 44.3 % (37.0-80.0) Lymphocytes (%) (Auto) 40.5 % (10.0-50.0) Monocytes (%) (Auto) 11.7 % (0.0-12.0) Eosinophils (%) (Auto) 2.8 % (0.0-7.0) Basophils (%) (Auto) 0.7 % (0.0-2.0) Neutrophils # (Auto) 2.5 10 ^3/uL (1.6-8.6) Lymphocytes # (Auto) 2.3 10 ^3/uL (0.4-5.4) Monocytes # (Auto) 0.7 10 ^3/uL (0-1.3) Eosinophils # (Auto) 0.2 10 ^3/uL (0-0.8) Basophils # (Auto) 0 10 ^3/uL (0-0.2) Nucleated Red Blood Cells 0.1 % Lipase 30 U/L (12-53) Urine Color Light-yellow (Yellow) Urine Clarity Clear (Clear) Urine pH 7.5 (5.0-9.0) Urine Specific [place] 1.011 (1.001-1.035) Urine Protein Negative (Negative) Urine Ketones Trace (Negative) Urine Blood Negative /uL (Negative) Urine Nitrite Negative (Negative) Urine Bilirubin Negative (Negative) Urine Urobilinogen Normal mg/dL (Negative) Urine Leukocyte Esterase Negative /uL (Negative) Urine RBC 1 /hpf (0 - 4) Urine Microscopic WBC 1 /HPF (0-5) Urine Squamous Epithelial Cells Few /hpf (<5) Urine Bacteria None seen /hpf (None Seen) Urine Glucose Normal mg/dL (Normal) Other Laboratory Tests 08/18/25 06:36 08/15/25 18:14 Brief Hx & Hospital Course: History of Present Illness 89-year-old female presents for evaluation of abdominal pain. The patient reports a three-month history of intermittent episodes of abdominal pain. She states the pain is localized to her left lower quadrant and is worse with palpation. Reports occasional episodes of nausea with vomiting. Currently denies any symptoms. No fever or chills. No diarrhea. Course of hospitalization: Patient was given clear liquid diet, gentle IV hydration, ppi. GI consultation was obtained. Impression reveals questionable diverticulitis. Patient's blood cell count remained normal. Patient's abdominal pain has improved. She was advanced to a regular diet. Patient will be discharged home with antibiotic therapy including Flagyl 500 mg p.o. b.i.d. for five days. She will follow up with her PCP in 1-2 weeks and continue all previous home medications. Physical examination General: Alert and Oriented x3. No acute distress. Well-nourished. Eyes: EOMI. Anicteric. HENT: Moist mucous membranes. Lungs: Clear to auscultation bilaterally. No accessory muscle use. Cardiovascular: Regular rate and rhythm. No murmur. No JVD. Abdomen: Soft, non-tender and non-distended. No palpable masses. Extremities: No edema. Non-tender. Skin: No rashes or lesions. Warm. Neurologic: No focal neurological deficits. CN II-XII grossly intact, but not individually tested. Psychiatric: Cooperative. Appropriate mood and affect. Total time spent with patient discussing and formulating plan of care: 35 minutes. This medical document was created using an electronic medical record system with [employer] dictation system. Although this document has been carefully reviewed, there may still be some phonetic and typographical errors. These areas are purely typographical due to imperfections of the software programs, and do not reflect any compromise in the patient's medical care. Consults/Reason for consult GI: Abdominal pain Condition at Discharge: Fair Final Diagnosis/Problems List Abdominal pain, probably secondary to early onset of diverticulitis Secondary diagnosis: -probable colitis -primary hypertension -dyslipidemia -hypothyroidism Discharge Disposition: Home Discharge Instruct/Medications Diet: Regular Activity: No Restrictions, As Tolerated Follow Up/Referral: Follow up with PCP in 1-2 weeks Medications: Flagyl 500 mg p.o. b.i.d. x5 days Continue all home medications Scheduled Atorvastatin Calcium (Atorvastatin Calcium), 20 MG PO HS Carvedilol (Coreg), 1 TAB PO BID, (Reported) Gabapentin (Gabapentin), 1 CAP PO DAILY, (Reported) Levothyroxine Sodium (Levothyroxine Sodium), 1 TAB PO DAILY, (Reported) Losartan Potassium (Losartan Potassium), 100 MG PO DAILY, (Reported) Metronidazole (Flagyl), 1 TAB PO BID Oxybutynin Chloride (Oxybutynin Chloride), 1 TAB PO DAILY, (Reported) Pantoprazole Sodium Sesquihydr (Pantoprazole Sodium), 1 TAB PO DAILY, (Reported) Sertraline Hcl (Sertraline Hcl), 1 TAB PO DAILY, (Reported) Scheduled PRN Gabapentin (Once-Daily) (Gabapentin), 300 MG PO Q6HP PRN Miscellaneous Medications Gabapentin (Gabapentin), CAP PO, (Reported) Mirtazapine (Mirtazapine Oral Disintegrating Tablet), 1 TAB PO, (Reported) Discontinued Medications Losartan Potassium (Losartan Potassium), 1 TAB PO DAILY, (Reported) 36 Discharge Statement: "Patient was advised to return to the ER or call 911 if any headaches, dizziness, shortness of breath, chest pain, abdominal pain, bleeding, fevers, or worsening of medical condition. Patient was counseled about treatment plan, medications, possible side effects, patientverbalized understanding. All questions were answered to the best of my ability. This discharge took greater then 30 minutes in planning, reviewing documentation, counseling the patient, and discussing with other team members." ASSESSMENT ASSESSMENT Assessment Abdominal pain, probably secondary to early onset of diverticulitis Date of Service: Aug 18, 2025 Billing Provider: CATE NEWTON NP Common Visit Codes: [id number] INP/OBS CARE(HIGH) CATE NEWTON NP Aug 18, 2025 13:20
[2025-08-18 13:46] VITALS: BP 129/84; PULSE 100; RESP 16; TEMP 97.6; O2SAT 96
[2025-08-18 15:30] VITALS: TEMP 98.7
--- NOTE | 2025-08-18 23:37 | DVHPN2 ---
Progress Note - Dictate Date Seen: Aug 18, 2025 (Late entryPatient seen at 10:15 a.m.) Medical Necessity Reason Pt with a Central, PICC or Fol: No Subjective No new complaints, patient is resting comfortably She denies any abdominal pain Patient had two bowel movements She is tolerating diet Stool for occult blood is negative vital signs Vital Sign Date Time Temp Pulse Resp B/P (MAP) Pulse Ox O2 Delivery O2 Flow Rate FiO2 08/18/25 15:30 98.7 08/18/25 13:46 100 16 96 08/18/25 13:00 108/65 (79) 08/18/25 08:00 Room Air* 0 96 21 Total Intake and Output 08/17/25 08/17/25 08/18/25 15:00 23:00 07:00 Intake Total 600 ml 120 ml Balance 600 ml 120 ml objective Gen - no pallor, no scleral icterus Skin - Patients skin is warm and dry. HEENT - normocephalic, atraumatic, dry mucous membranes. Neck - supple, no lymphadenopathy Pulmonary - B/L equal air entry with vesicular breath sounds cardiovascular - regular S1,S2 heard GI - soft abdomen with mild LLQ tenderness. Bowel sounds normoactive. Neurological - Patient is alert and oriented x4. No motor or sensory weakness laboratory and microbiology Laboratory Tests 08/18/25 06:36 08/15/25 18:14 Test 08/18/25 06:36 Range/Units Serum Glucose 95 74-106 mg/dL Problems(with codes): (1) Diverticulosis (2) Constipation (3) Abdominal pain (4) Dehydration Prognosis Plan Continue supportive care Maintained on stool softeners Advance diet as tolerated Outpatient follow up with GI Services as needed Discharge planning is in progress Plan discussed with: Patient WESTON GONGORA MD Aug 18, 2025 23:37
== END 2025-08-18 16:20 | disposition home or self-care (01) | DRG 392 ==
LOC: EDBD 17:27 → ER 17:27 → OVERFLOW 23:56 → WEST WING 08-16 16:06
PROVIDERS: ADMIT Nurse Practitioner Acute Care; ATTEND Nurse Practitioner Acute Care
DX: K57.32 Diverticulitis of large intestine without perforation or abscess without bleeding (principal); K52.9 Noninfective gastroenteritis and colitis, unspecified; I10 Essential (primary) hypertension; D64.9 Anemia, unspecified; E03.9 Hypothyroidism, unspecified; E78.5 Hyperlipidemia, unspecified; Z88.5 Allergy status to narcotic agent; Z91.041 Radiographic dye allergy status; Z79.899 Other long term (current) drug therapy; K57.30 Diverticulosis of large intestine without perforation or abscess without bleeding
CPT/HCPCS: 36415; 74176; 80048; 80053; 81001; 82270; 82306; 82378; 83690; 83735; 84443; 85025; G0378